=== PATIENT | female | born 1940 | race Caucasian/White ===

== ENCOUNTER → 2018-02-14 09:56 | Outpatient (CLI) | payer BC, SELFPAY ==
--- NOTE | 2018-02-14 10:00 | HPBI_ITS ---
MAMMOGRAPHY - BILATERAL SCREENING 3-D SAMEER SYNTHESIS REASON FOR EXAM: Female, 78 years old. Bilateral Screening 3-D tomosynthesis PERTINENT HISTORY: Family history breast carcinoma, aunt age 61. TECHNIQUE: 2-D mammograms and 3-D Sameer synthesis of the breast (s) were performed. CAD was performed. COMPARISON: 01/26/2017 through 01/06/2015. FINDINGS: The breast composition is almost entirely fat. Scattered benign calcifications are seen. No dense spiculated masses, abnormal microcalcification cluster, architectural distortion or dominant mass is identified. There is no adenopathy, skin thickening or nipple retraction. There has been no significant change since the prior study. HPBI/SCREENING MAMM (CAD), BILAT IMPRESSION: No mammographic signs of malignancy. Routine yearly mammograms recommended. ASSESSMENT CATEGORY: BIRADS Category 2: Benign. A letter regarding these results will be sent to the patient by the facility within 30 days. FOLLOW UP RECOMMENDATION: Yearly follow up mammogram recommended. (A) Approximately 10% of breast cancers are not detected by mammography. A normal mammogram should not delay biopsy of a clinically suspicious abnormality. Electronically Signed: Carl Mtz, at 19:57 EDT Tel , Service support ,
== END ==
PROVIDERS: Family Provider Family Medicine; PCP Family Medicine; Visit Provider Obstetrics & Gynecology
DX: Z12.31 Encounter for screening mammogram for malignant neoplasm of breast (principal)
CPT/HCPCS: 77063; 77067

== ENCOUNTER → 2019-03-07 15:24 | Outpatient (CLI) | payer BC, SELFPAY ==
[2016-03-21 22:39] VITALS: BMI 31.0
--- NOTE | 2019-03-07 15:30 | RAD_ITS ---
STUDY: X-RAY - LEFT HAND REASON FOR EXAM: Female, 79 years old. Arthritis. TECHNIQUE: 3 view(s) of the hand. COMPARISON: None. FINDINGS: There is joint space narrowing of the radiocarpal articulation consistent with degenerative arthrosis. Normal distal radioulnar joint. Normal visualized carpal bones. Normal carpal articulations There is degenerative arthrosis of the carpometacarpal (CMC) articulation of the thumb. Normal second through fifth carpometacarpal joints. Normal metacarpi. Normal metacarpophalangeal joint of the thumb. Normal interphalangeal joint of the thumb. Normal proximal and distal phalanges of the thumb. Normal metacarpophalangeal joints of the second through fifth fingers. There is diffuse articular joint space narrowing of the proximal and distal interphalangeal joints of the second through fifth fingers, but without erosive changes or periarticular soft tissue swelling. This is worse at the third proximal and distal interphalangeal joints with evidence of periarticular erosions. Soft tissue swelling. RAD/Hand Min 3 Views IMPRESSION: Degenerative joint disease of the hand and wrist, as described above. This is worse at the proximal and distal interphalangeal joints of the third digit with overlying soft tissue swelling. Electronically Signed: Matti Munoz, at 14:44 EDT , Service support ,
[2019-03-07 17:59] LABS: CRP < 2.90 mg/L (0.0-3.0); Rheumatoid Factor < 10.0 IU/mL (<15); Uric Acid 5.5 mg/dL (2.6-6.0)
[2019-03-07 18:01] LABS: Absolute Lymphocyte Count 1.37 X10^3/ul (0.83-4.51); Absolute Neutrophil Count 4.8 X10^3/uL (2.0-7.7); Basophil# 0.04 X10^3/uL; Basophil% 0.6 % (0-1); Eosinophil# 0.18 X10^3/uL; Eosinophils% 2.6 % (0-5); Hematocrit 42.5 % (37-47); Hemoglobin 13.9 g/dl (12.0-15.0); Lymphocyte # 1.37 X10^3/ul (4.0); Lymphocyte % 19.7 % (19-41); Mean Corp Hgb Conc 32.7 g/gl (32-36); Mean Corpuscular Hgb 30.3 pg (27.0-32.0); Mean Corpuscular Volume 92.8 fL (81-99); Mean Platelet Vol. 10.6 fl (6.2-12.0); Monocyte# 0.56 X10^3/uL; Neutrophil # 4.82 X10^3/uL (2.7-7.7); Neutrophil % 69.1 % (47-70); Platelet Count 263 K/mm3 (150-450); RBC Distribution Width CV 14.2 % (11.6-14.6); RBC Distribution Width SD 48.2 fl (35.1-43.9); Red Blood Count 4.58 M/mm3 (4.2-5.4)
[2019-03-07 18:03] LABS: Erythrocyte Sedimentation Rate 13 mm/hr (0-30)
[2019-03-07 18:04] LABS: POSITIVE COUNT NO; POSITIVE DIFFERENTIAL NO; POSITIVE MORPHOLOGY NO
[2019-03-12 12:08] LABS: ANTINUCLEAR ANTIBODIES DIRECT Negative (Negative)
== END ==
PROVIDERS: Family Provider Family Medicine; PCP Family Medicine; Referring Provider Family Medicine; Visit Provider Family Medicine
DX: M19.041 Primary osteoarthritis, right hand (principal); M19.042 Primary osteoarthritis, left hand
CPT/HCPCS: 36415; 73130; 84550; 85025; 85652; 86038; 86140; 86431

== ENCOUNTER → 2019-04-12 13:10 | Outpatient (CLI) | payer BC, SELFPAY ==
[2016-03-21 22:39] VITALS: BMI 31.0
--- NOTE | 2019-04-12 13:13 | BI_ITS ---
MAMMOGRAPHY - BILATERAL SCREENING REASON FOR EXAM: Female, 79 years old. Routine annual screening examination. PERTINENT HISTORY: Aunt with breast cancer. TECHNIQUE: Digital bilateral breast agnieszka (3D mammographic acquisition) in the CC and MLO projections. 2-D mediolateral oblique (MLO) and craniocaudad (CC) views of both breasts were obtained. CAD: Full Field Digital Mammography with Computer Added Detection was performed. COMPARISON: Comparison is made with prior study dated February 14, 2018 and January 26, 2017. FINDINGS: Breast Composition: There are scattered areas of fibroglandular density. There are no dominant masses or suspicious calcifications. Stable small nodular densities in the deep lateral portion of the left breast. No other significant abnormalities are identified. There has been no significant change since the prior study. BI/SCREENING MAMM (CAD), BILAT IMPRESSION: Stable bilateral screening mammogram. Yearly follow-up mammogram recommended. (A) ASSESSMENT CATEGORY: BIRADS Category 2: Benign. A letter regarding these results will be sent to the patient by the facility within 30 days. Approximately 10% of breast cancers are not detected by mammography. A normal mammogram should not delay biopsy of a clinically suspicious abnormality. [id number] Electronically Signed: Matti Munoz, at 14:56 EDT , Service support ,
== END ==
PROVIDERS: Family Provider Family Medicine; PCP Family Medicine; Referring Provider Obstetrics & Gynecology; Visit Provider Obstetrics & Gynecology
DX: Z12.31 Encounter for screening mammogram for malignant neoplasm of breast (principal); Z80.3 Family history of malignant neoplasm of breast
CPT/HCPCS: 77063; 77067

== ENCOUNTER → 2019-10-01 12:09 | Outpatient (CLI) | payer BC, SELFPAY ==
[2016-03-21 22:39] VITALS: BMI 31.0
[2019-10-01 14:36] LABS: Absolute Lymphocyte Count 1.26 X10^3/uL (0.83-4.51); Absolute Neutrophil Count 4.1 X10^3/uL (2.0-7.7); Basophil# 0.05 X10^3/uL; Basophil% 0.8 % (0-1); Eosinophil# 0.17 X10^3/uL; Eosinophils% 2.8 % (0-5); Hematocrit 43.9 % (37-47); Hemoglobin 13.6 g/dL (12.0-15.0); Lymphocyte # 1.26 X10^3/ul (4.0); Lymphocyte % 20.8 % (19-41); Mean Corpuscular Hgb 29.4 pg (27.0-32.0); Mean Corpuscular Volume 94.8 fL (81-99); Mean Platelet Vol. 10.6 fl (6.2-12.0); Monocyte# 0.46 X10^3/uL; Monocyte% 7.6 % (0-10); NRBC Flagged by Analyzer 0 % (0-5); Neutrophil % 67.7 % (47-70); Platelet Count 234 K/mm3 (150-450); RBC Distribution Width CV 13.8 % (11.6-14.6); RBC Distribution Width SD 48.1 fl (35.1-43.9); Red Blood Count 4.63 M/mm3 (4.2-5.4); White Blood Count 6.1 K/mm3 (4.4-11.0)
[2019-10-01 15:20] LABS: AST(SGOT) 14 U/L (15-37); Alanine Aminotransfer ALT/SGPT 19 U/L (13-56); Albumin, Serum 3.8 g/dL (3.2-5.0); Alkaline Phosphatase 100 U/L (45-117); Bilirubin, Direct 0.09 mg/dL (0.00-0.30); Globulin 3.9 g/dL (2.2-4.2); Protein, Total 7.7 g/dL (6.4-8.2); Thyroid Stim Hormone (TSH) 2.04 uIU/mL (0.358-3.74)
[2019-10-06 14:07] LABS: DHEA Sulfate 79.2 ug/dL (13.9-142.8)
[2019-10-08 13:43] LABS: Androstenedione 26 ng/dL (17-99)
== END ==
PROVIDERS: Family Provider Family Medicine; PCP Family Medicine; Referring Provider Family Medicine; Visit Provider Family Medicine
DX: L65.9 Nonscarring hair loss, unspecified (principal); L29.9 Pruritus, unspecified
CPT/HCPCS: 36415; 80076; 82157; 82627; 84403; 84443; 85025; 82626

== ENCOUNTER → 2019-11-05 16:31 | Outpatient (CLI) | payer BC, SELFPAY ==
[2019-11-05 17:30] LABS: Absolute Lymphocyte Count 1.61 X10^3/uL (0.83-4.51); Absolute Neutrophil Count 4.5 X10^3/uL (2.0-7.7); Basophil# 0.05 X10^3/uL; Basophil% 0.7 % (0-1); Eosinophils% 2.9 % (0-5); Hematocrit 41.7 % (37-47); Hemoglobin 13.4 g/dL (12.0-15.0); Lymphocyte # 1.61 X10^3/ul (4.0); Lymphocyte % 23.4 % (19-41); Mean Corp Hgb Conc 32.1 g/dL (32-36); Mean Corpuscular Volume 93.5 fL (81-99); Mean Platelet Vol. 10.6 fl (6.2-12.0); Monocyte# 0.51 X10^3/uL; Monocyte% 7.4 % (0-10); NRBC Flagged by Analyzer 0 % (0-5); Neutrophil # 4.49 X10^3/uL (2.7-7.7); Neutrophil % 65.3 % (47-70); Platelet Count 256 K/mm3 (150-450); RBC Distribution Width CV 13.7 % (11.6-14.6); RBC Distribution Width SD 46.5 fl (35.1-43.9); Red Blood Count 4.46 M/mm3 (4.2-5.4); White Blood Count 6.9 K/mm3 (4.4-11.0)
[2019-11-05 17:45] LABS: Erythrocyte Sedimentation Rate 26 mm/hr (0-30)
[2019-11-05 17:50] LABS: Ferritin 150 ng/mL (8-252); Rheumatoid Factor < 10.0 IU/mL (<15); T4 Free Direct 0.93 ng/dL (0.76-1.46); Thyroid Stim Hormone (TSH) 2.13 uIU/mL (0.358-3.74); Uric Acid 4.4 mg/dL (2.6-6.0)
[2019-11-07 11:51] LABS: Thyroid Peroxidase AB 11 IU/mL (0-34)
[2019-11-07 16:57] LABS: ANTINUCLEAR ANTIBODIES DIRECT Negative (Negative)
== END ==
PROVIDERS: Family Provider Family Medicine; PCP Family Medicine; Visit Provider Family Medicine
DX: M19.041 Primary osteoarthritis, right hand (principal); L65.9 Nonscarring hair loss, unspecified
CPT/HCPCS: 36415; 82728; 84439; 84443; 84550; 85025; 85652; 86038; 86376; 86431

== ENCOUNTER 2019-11-07 01:04 | Emergency (ER) | payer BC, SELFPAY ==
[2019-11-07 01:05] VITALS: BP 193/76; PULSE 90; RESP 17; TEMP 36.4; O2SAT 99; BMI 33.7
[2019-11-07 01:16] VITALS: BP 164/68; PULSE 70; RESP 16; O2SAT 100
[2019-11-07 02:08] VITALS: BP 141/55; PULSE 71; RESP 17; O2SAT 95
--- NOTE | 2019-11-07 03:45 | ED.VIS.GEN ---
History of Present Illness Chief Complaint: Overdose Detail of Chief Complaint: Accidental overdose of minoxidil Informant: Patient Onset: Today Narrative: Patient presents after accidental overdose of minoxidil. 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 She states the medication was mixed with water to dilute and placed in a plastic water bottle. She is supposed to take 1 teaspoon a day. She accidentally grabbed this bottle tonight thinking it was her regular water bottle and drank 3 swallows of it before she realized it was actually her medication. The bottle does not have a concentration of medication listed on it. Patient called poison control who estimates that she may have had 3 ounces or up to 18 teaspoons. Because we do not know the concentration of the minoxidil she was sent in to have her blood pressure monitored. Patient has no symptoms on arrival. - Past Medical History (1) Hair loss Status: Chronic Past Medical History - Allergies and Home Meds Allergies/Adverse Reactions: Allergies erythromycin base Allergy (Verified 11/07/19 01:13) Unknown Primary Care Physician: Rhina Castaneda MD [Primary Care Provider] - Lives: Alone Smoking Status: Never smoker Review of Systems General: Denies: Chills, Fever Eyes: Denies: Visual changes - bilaterally ENT: Denies: Bilateral ear pain Cardiovascular: Denies: Chest pain Respiratory: Denies: Dyspnea Gastrointestinal: Denies: Abdominal pain, Nausea, Vomiting Genitourinary: Denies: Dysuria Musculoskeletal: Denies: Myalgias, Arthralgias Skin: Denies: Rash Neurological: Denies: Headache Hematologic: Denies: Easy bruising, Easy bleeding Allergy: Denies: Uticaria Physical Exam Vital Signs/Narrative: Vital Signs Temp Pulse Resp BP Pulse Ox 11/07/19 02:08 71 17 141/55 H 95 11/07/19 01:16 70 16 164/68 H 100 11/07/19 01:05 97.6 F L 90 17 193/76 H 99 Inital Vital Signs reviewed: Yes General: Well nourished, Well developed Head: Normocephalic ENT: Moist mucous membranes Neck: Supple Cardiovascular: Regular rate, Regular rhythm Respiratory: No distress, CTA bilaterally Abdomen: Soft, Nontender, Nondistended Extremities: Nontender Skin: Normal color, No rash Neurological: Alert, Oriented x3, Normal Strength, Normal Sensation Psychological: - - Anxious Diagnostic/Tx/Re-eval - Medical Decision Making She was placed on bobbin presser. On review of the pharmacodynamics of minoxidil onset typically occurs about 30 minutes and peak concentration of the drug at 2 to 3 hours. Patient has been observed here to a point of 3 hours after her ingestion. Although her blood pressure was quite elevated when she came to the hospital, 193/76, she was very anxious. Her blood pressure has not dropped below the mid 120s after hours of observation. Patient has remained asymptomatic. At this time she will be discharged to home. ED Disposition - Plan for ED Patient: Disposition: Home or Assisted Living Diagnosis: Accidental overdose Instructions: OVERDOSE, Accidental (Adult) Referrals: Rhina Castaneda MD [Primary Care Provider] -
[2019-11-07 03:49] VITALS: BP 154/76; PULSE 81; RESP 20; O2SAT 97
== END 2019-11-07 04:24 | disposition home or self-care (01) ==
PROVIDERS: Emergency Provider Emergency Medicine; Family Provider Family Medicine; PCP Family Medicine
DX: T46.7X1A Poisoning by peripheral vasodilators, accidental (unintentional), initial encounter (principal); R03.0 Elevated blood-pressure reading, without diagnosis of hypertension; Y92.9 Unspecified place or not applicable
CPT/HCPCS: 99283

== ENCOUNTER 2021-02-05 13:14 | Outpatient (RCR) | payer BC, SELFPAY ==
[2021-02-05] MEDS: COVID-19 VACC, MRNA(PFIZER)/PF 30 MCG/0.3 ML SYRINGE IM (13:15)
[2021-02-26] MEDS: COVID-19 VACC, MRNA(PFIZER)/PF 30 MCG/0.3 ML SYRINGE IM (06:59)
== END 2021-04-28 23:59 ==
LOC: IMMUN 13:14
PROVIDERS: PCP Family Medicine; Referring Provider Family Medicine; Visit Provider Family Medicine
DX: Z23 Encounter for immunization (principal)
CPT/HCPCS: 0001A; 0002A; 91300

== ENCOUNTER → 2021-02-13 15:27 | Outpatient (CLI) | payer BC, SELFPAY ==
[2021-02-13 17:27] LABS: Absolute Lymphocyte Count 1.54 X10^3/uL (0.83-4.51); Absolute Neutrophil Count 5.2 X10^3/uL (2.0-7.7); Basophil# 0.04 X10^3/uL; Basophil% 0.5 % (0-1); Eosinophil# 0.12 X10^3/uL; Eosinophils% 1.6 % (0-5); Hematocrit 43.2 % (37-47); Hemoglobin 13.7 g/dL (12.0-15.0); Lymphocyte # 1.54 X10^3/ul (4.0); Lymphocyte % 20.4 % (19-41); Mean Corp Hgb Conc 31.7 g/dL (32-36); Mean Corpuscular Volume 94.7 fL (81-99); Mean Platelet Vol. 10.4 fl (6.2-12.0); Monocyte# 0.62 X10^3/uL; Monocyte% 8.2 % (0-10); NRBC Flagged by Analyzer 0 % (0-5); Platelet Count 269 K/mm3 (150-450); RBC Distribution Width CV 13.7 % (11.6-14.6); Red Blood Count 4.56 M/mm3 (4.2-5.4); White Blood Count 7.5 K/mm3 (4.4-11.0)
== END ==
PROVIDERS: PCP Family Medicine; Referring Provider Family Medicine; Visit Provider Family Medicine
DX: R68.83 Chills (without fever) (principal)
CPT/HCPCS: 36415; 85025

== ENCOUNTER 2021-02-24 06:30 | Day surgery (SDC) | payer BC, SELFPAY ==
[2021-02-19 08:56] VITALS: BMI 33.6
[2021-02-24] VITALS (7 sets, daily range): BP systolic 97–144; BP diastolic 47–76; PULSE 65–98; RESP 16; TEMP 36.1–36.3; O2SAT 97–99; BMI 34.0
[2021-02-24] MEDS: Lactated Ringers 1,000 ML 100 ML IV (07:05)
--- NOTE | 2021-02-24 07:09 | PCM.HP.BLA ---
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 Eber Painting MD) Glaucoma (Acute) Surgical History (Updated 02/19/21 @ 08:54 by Madison Stewart) S/P D&C (status post dilation and curettage) (Acute) Family History (Updated 02/19/21 @ 08:55 by Madison Stewart) Grandfather CVA (cerebral vascular accident) Grandmother CVA (cerebral vascular accident) Cancer stomach Mother Heart disease Brother Diabetes Heart disease Social History (Updated 02/19/21 @ 09:[address] Eber Painting MD) Smoking Status: Never smoker alcohol intake: never HPI HPI HPI: ASHLEY ADAMSON, is a 81 F who presents to the office today for HPI HPI Surgical H&P: Yes HPI: ASHLEY ADAMSON, is a 81 F who presents to the office today for rectal bleeding. The patient had a colonoscopy in 2010 for rectal bleeding and nothing was found except for a small hyperplastic polyp. Her rectal bleeding resolved and she had not had any rectal bleeding until recently. Patient reports over the last 3 months she has been having painless rectal bleeding with bowel movements. She describes bright red blood with wiping. She says that she is also had blood in the stool. ROS General General: No weight change or fatigue Musc Musculoskeletal: Yes arthritis Cardio Cardiovascular: No murmur, pacemaker, heart disease, atrial fibrillation, high blood pressure, heart attack, heart stent, palpitations, shortness of breat with exertion or chest pain Psych Psychiatric: No depression or anxiety Resp Respiratory: No shortness of breath, No sleep apnea, No cough, No COPD, No asthma, No emphysema, No wheezing Gastro Gastrointestinal: No abdominal pain, No nausea or vomiting, No diarrhea, No constipation, Yes blood in stool, No acid reflux, Yes hemorrhoids, No ulcers, No gallbladder problem, No black,tarry stools Valente Hematologic: No blood thinners Exam Const General: cooperative Orientation: alert, oriented x3 Resp Effort & Inspection: normal respiratory effort Auscultation: clear to auscultation bilaterally Cardio Rate: regular rate Rhythm: regular rhythm Heart Sounds: no murmurs GI Inspection: non-distended Palpation: soft, nontender Rectal Exam: visual inspection normal, normal sphincter tone Assessment & Plan Problems 1. Painless rectal bleeding K62.5 Plan The patient is having rectal bleeding with bowel movements for the last few months. She also reports blood in the stool but bright red blood when she wipes. I discussed colonoscopy with her. I was not able to note any hemorrhoids on rectal exam. If colonoscopy is normal and she does have hemorrhoids I will discuss hemorrhoidectomy with her. I explained endoscopy in detail to the patient. I explained the risks including but not limited to stroke or heart attack with anesthesia, perforation of the GI tract, bleeding, infection. I explained that any of these could necessitate further emergency surgery. The patient understands and all questions were answered sufficiently. The patient wishes to proceed with procedure. Eber Painting MD Pager: [facility] [address] [place] [address], [address] [place] [phone] Office: I have re-examined the patient. There are no clinical changes since date of exam.
--- NOTE | 2021-02-24 07:30 | COLBX_PTH ---
PATIENT: ASHLEY ADAMSON LOC: EN U#:[id number] AGE/SX: 81/F ROOM: RE02/24/[address]: Dr. Eber Painting MD : 1940 BED: DIS: 02/24/2021 SPEC #: [id number] RECD: 02/24/21 10:15 STATUS: DHARMESH RESandra #: [id number] ROGER: 02/24/21 07:[address]: Eber Painting DEPT: SURGICAL PATHOLOGY RECD BY: Hali Carvajal ENTERED: 02/24/21 12:57 SP TYPE: COLON BX OTHR DR: Dr. Rhina Castaneda MD Tissues: Rectum, NOS Procedures: Surgery Specimen Level IV HEADER OPERATION: Colonoscopy (MAC) PRE-OP DIAGNOSIS: Painless rectal bleeding TISSUE SUBMITTED: Rectal polyp MICROSCOPIC DIAGNOSIS Rectal polyp, biopsy: Fragments of tubulovillous adenoma. SJ:richmond 02/25/2021 MICROSCOPIC DESCRIPTION Slides are reviewed. GROSS DESCRIPTION Received in fixative is one container labeled with the patient's name and designated rectal polyp. The specimen consists of two de la rosa-pink polyps measuring 2.5 x 1.5 x 1 cm and 0.7 x 0.7 x 0.7 cm. Also present in the container is a piece of de la rosa-pink soft tissue measuring 0.7 x 0.5 x 0.2. Apparent base of the largest piece is inked black. This piece is serially sectioned. The intermediate sized piece is bisected. The entire specimen is submitted in two cassettes. Cassette 2 contains the largest piece. / SJ:rg 02/24/21 TC: 1 CPT: 88475
--- NOTE | 2021-02-24 08:01 | OP.COLON_ITS ---
Patient Name: Shira Murphy Procedure Date: 02/24/2021 7:06 AM Date of : 1940 Age: 81 Procedure: Colonoscopy Indications: Rectal bleeding Providers: Eber Painting MD Referring MD: Rhina Castaneda Medicines: Monitored Anesthesia Care Patient Profile: This is a 81 year old female. Refer to note in patient chart for documentation of history and physical. Last Colonoscopy: several years ago. Complications: No immediate complications. Procedure: Pre-Anesthesia Assessment: - Prior to the procedure, a History and Physical was performed, and patient medications and allergies were reviewed. The patient's tolerance of previous anesthesia was also reviewed. The risks and benefits of the procedure and the sedation options and risks were discussed with the patient. All questions were answered, and informed consent was obtained. Prior Anticoagulants: The patient has taken no previous anticoagulant or antiplatelet agents. After reviewing the risks and benefits, the patient was deemed in satisfactory condition to undergo the procedure. After I obtained informed consent, the scope was passed under direct vision. Throughout the procedure, the patient's blood pressure, pulse, and oxygen saturations were monitored continuously. The colonoscope was introduced through the anus and advanced to the cecum, identified by appendiceal orifice and ileocecal valve. The colonoscopy was performed without difficulty. The patient tolerated the procedure well. The quality of the bowel preparation was good. Scope In: 7:27:53 AM Scope Withdrawal Time 0 hours 13 minutes 1 second Scope Out: 7:48:11 AM Total Procedure Duration Time 0 hours 20 minutes 18 seconds Findings: A large polyp was found in the rectum. The polyp was semi-pedunculated. The polyp was removed with a hot snare. Resection and retrieval were complete. The exam was otherwise without abnormality on direct and retroflexion views. Impression: - One large polyp in the rectum, removed with a hot snare. Resected and retrieved. - The examination was otherwise normal on direct and retroflexion views. Recommendation: - Discharge patient to home. - Resume previous diet. - Continue present medications. - Await pathology results. - Repeat colonoscopy in 3 years for surveillance based on pathology results. Procedure Code(s): --- Professional --- 04430, Colonoscopy, flexible; with removal of tumor(s), polyp(s), or other lesion(s) by snare technique Diagnosis Code(s): --- Professional --- K62.1, Rectal polyp K62.5, Hemorrhage of anus and rectum CPT copyright 2017 [employer]. All rights reserved. The codes documented in this report are preliminary and upon crosscutter rolled glass review may be revised to meet current compliance requirements. Eber Painting MD 02/24/2021 8:00:55 AM This report has been signed electronically. Number of Addenda: 0 Note Initiated On: 02/24/2021 7:06 AM
--- NOTE | 2021-02-24 08:01 | OP.CCLET_ITS ---
02/24/2021 Rhina Castaneda [address] [place] [address] Re : Colonoscopy procedure for Shira Murphy Dear Dr. Castaneda This procedure was performed on Wednesday, February 24, 2021. My impressions and recommendations are as follows: Impressions : - One large polyp in the rectum, removed with a hot snare. Resected and retrieved. - The examination was otherwise normal on direct and retroflexion views. Recommendations : - Discharge patient to home. - Resume previous diet. - Continue present medications. - Await pathology results. - Repeat colonoscopy in 3 years for surveillance based on pathology results. My findings are described in the full procedure note, which is enclosed. If I can be of further assistance, please feel free to contact me at Doctor phone number(s): , Work: . Sincerely, Eber Painting MD 02/24/2021 8:00:55 AM This report has been signed electronically.
== END 2021-02-24 08:38 | disposition home or self-care (01) ==
LOC: EN 06:35 → AC 06:35
PROVIDERS: PCP Family Medicine; Referring Provider Family Medicine; Visit Provider Surgery
PROC: 0DJD8ZZ Inspection of Lower Intestinal Tract, Via Natural or Artificial Opening Endoscopic (ICD-10-PCS; CPT 45378; principal; 2021-02-24 07:25)
DX: D12.8 Benign neoplasm of rectum (principal); K62.5 Hemorrhage of anus and rectum; J45.909 Unspecified asthma, uncomplicated; G43.109 Migraine with aura, not intractable, without status migrainosus; Z20.822 Contact with and (suspected) exposure to COVID-19; Z79.899 Other long term (current) drug therapy
CPT/HCPCS: 45385; 87426; 88305; C9803; J7120; J2405

== ENCOUNTER → 2021-06-09 11:13 | Outpatient (CLI) | payer BC, SELFPAY ==
[2021-02-24 07:01] VITALS: BMI 34.0
--- NOTE | 2021-06-09 11:15 | BI_ITS ---
MAMMOGRAPHY - BILATERAL SCREENING REASON FOR EXAM: Female, 81 years old. Routine annual screening examination. PERTINENT HISTORY: Aunt with breast cancer. TECHNIQUE: Digital bilateral breast sameer (3D mammographic acquisition) in the CC and MLO projections. 2-D mediolateral oblique (MLO) and craniocaudad (CC) views of both breasts were obtained. CAD: Full Field Digital Mammography with Computer Added Detection was performed. COMPARISON: Comparison is made with prior study dated 04/12/2019 and 02/14/2018. FINDINGS: Breast Composition: There are scattered areas of fibroglandular density. There are no dominant masses or suspicious calcifications. The previously seen nodular densities in the deep mid slightly lateral aspect of the left breast have increased slightly in size. Correlation with ultrasound is recommended. Stable 4.7 mm nodular density in the inferior medial portion of the left breast. No other significant abnormalities are identified. BI/SCRN MAMM (CAD)W/SAMEER BILAT IMPRESSION: Mild increase in size of the previously seen adjacent densities in the deep slightly lateral portion of the left breast as described. Correlation with ultrasound is recommended. ASSESSMENT CATEGORY: BIRADS Category 0: Incomplete. Need additional imaging evaluation. A letter regarding these results will be sent to the patient by the facility within 30 days. Approximately 10% of breast cancers are not detected by mammography. A normal mammogram should not delay biopsy of a clinically suspicious abnormality. [id number] Electronically Signed: Matti Munoz MD at 12:38 EDT , Service support ,
== END ==
PROVIDERS: PCP Family Medicine; Referring Provider Student in an Organized Health Care Education/Training Program; Visit Provider Student in an Organized Health Care Education/Training Program
DX: Z12.31 Encounter for screening mammogram for malignant neoplasm of breast (principal); N63.20 Unspecified lump in the left breast, unspecified quadrant
CPT/HCPCS: 77063; 77067

== ENCOUNTER → 2021-06-10 10:43 | Outpatient (CLI) | payer BC, SELFPAY ==
[2021-02-24 07:01] VITALS: BMI 34.0
--- NOTE | 2021-06-10 10:45 | US_ITS ---
STUDY: ULTRASOUND BREAST - LEFT REASON FOR EXAM: Female, 81 years old. Abnormal screening mammogram. TECHNIQUE: Axial and longitudinal images of the LEFT breast were performed with a high resolution ultrasound transducer. # OF IMAGES: [id number] COMPARISON: Comparison is made with prior mammogram dated 06/09/2021. FINDINGS: LEFT Breast: There is a 5 mm x 6 mm x 2 mm hypoechoic well-defined nodule in the deep subcutaneous tissue of the breast. This may represent a sebaceous cyst. Clinical correlation is recommended. US/Breast Limited Unilateral IMPRESSION: Findings suggestive of a 5 mm x 6 mm x 3 mm hypoechoic nodule deep to the skin at the 4 o''clock position of the breast at 9 cm from nipple. This most likely represents a sebaceous cyst. ASSESSMENT CATEGORY: BIRADS Category 2: Benign. A letter regarding these results will be sent to the patient by the facility within 30 days. Electronically Signed: Matti Munoz MD at 12:22 EDT , Service support ,
== END ==
PROVIDERS: PCP Family Medicine; Referring Provider Student in an Organized Health Care Education/Training Program; Visit Provider Student in an Organized Health Care Education/Training Program
DX: R92.8 Other abnormal and inconclusive findings on diagnostic imaging of breast (principal)
CPT/HCPCS: 76642

== ENCOUNTER 2021-12-11 13:30 | Outpatient (RCR) | payer BC, SELFPAY ==
--- NOTE | 2021-11-26 15:32 | HP.PTEVAL ---
Patient's Visit Information ASHLEY ADAMSON is a 81 year old F referred to Physical Therapy by Dr. Rhina Castaneda MD with a diagnosis of Left Shoulder Pain. Date of Evaluation: 11/26/21 Physical Therapist: Madison Shaw DPT - Visit Plan Frequency: 2x /Week Duration: 4 Weeks Plan: Focus on scapular s/s- Ultrasound as modality of choice- Posture. HEP Given: Postural education, pec corner stretch, walk away, thumb up reaching, scap retractions - Subjective About 3.5 weeks ago she started having pain in the left shoulder. She is right hand dominate. Scooping leaves in two dust pans- moved her sofa out from the wall to hang a wreathe. She has pain going backwards- reaching to put a bra one, getting out of her car, putting her seat belt, pushing off with that hand. She hasn't put her [place] stuff away because she can't carry boxes. She throws her laundry down the stairs and puts the basket on the step above. The pain is located in the posterior deltoid. No N/t in the the fingers, no difficulty with finger dexterity. No x-rays or MRI. Saw the MD who moved it around. Eases: ice, Ibuprofen, resting it at your side. Describes the pain as dull and achy and just doesn't want to do it. No RHODES, blurred vision or dizziness. Sleep: disturbed but ibuprofen will let her sleep. Worst: 810 Best: -12/31. Fully I-lives alone- does have a dog who she has to package pick up but uses her right arm. Has had impingement in her left shoulder before- went to [facility]- she has therapy and that made her better- no issues since then. She is very active- was walking 2 miles most days but she does no weights. PMHx/Meds: change in eye drops since February 2021 - Objective Posture: FH, RS- increased guarding of the left UE- can correct posture with verbal cues but does not maintain. Gait: no deviation noted- good arm swing and trunk rotation. 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 - Special Tests L Shoulder Supine Impingement Test - RC Tear: Positive L Shoulder Lift Off Test - Subscapular Tear: Positive L Shoulder Empty Can - SS: Positive L Shoulder Neer - Impingement: Positive L Shoulder Ramos Cosmo - Impingement: Positive - Balance/Special Test Scores Quick DASH Score: 38.6350 - Goals Goal 1:: Patient will be I with HEP and progression Goal Time Frame: 4-6 Weeks Goal 2:: Patient will maintain proper posture t/o tx session Goal Time Frame: 4-6 Weeks Goal 3:: Patient will report no pain for 1 week performing normal ADL's Goal Time Frame: 4-6 Weeks Goal 4:: Patient will report more than 75% better Goal Time Frame: 4-6 Weeks Goal 5:: Patient will demo full AROM of the left shoulder in all deficit planes Goal Time Frame: 4-6 Weeks - Rehabilitation Potential Physical Therapy Diagnosis: Patient presents with hypomobility- she has decrease pain free ROM, UE and scapular strength/stabilization and muscular endurance leading to poor posture and increased pain with ADL's. Rehabilitation Potential: Good - Anticipated Interventions Patient/Client Instruction: Educate patient on: Benefits of Fitness Program Therapeutic Exercise to Include: Strength training, Endurance training, Coordination, Body mechanics, Postural training, Flexibilty training, Neuromotor development, Passive ROM, Active ROM, Dynamic Lumbar Stabilization, Scapular Strength/Stabilization For the Purpose of:: To improve muscle performance and motor function TENS: Yes Cryotherapy (ice pack, ice massage): Yes Thermo therapy (hot pack): Yes Ultrasound (thermal/non thermal): Yes Thank you for the opportunity to evaluate your patient. For Medicare and Medicare HMO plans, please review the plan of care and approve it. It will need to be FAXED BACK to us at [phone] for Medicare purposes. For Medicare only, by signing this I certify the plan of care. Please let me know if there are questions or concerns regarding this plan of care. Physician Signature: Date:
--- NOTE | 2022-05-06 14:44 | HP.PT.NRP ---
ASHLEY ADAMSON was seen in my office for initial evaluation on 11/26/21. The following Plan of Care was established for this patient: Initial Frequency: 2x /Week Initial Duration: 4 Weeks Patient/Client Instruction: Educate patient on: Benefits of Fitness Program Therapeutic Exercise to Include: Strength training, Endurance training, Coordination, Body mechanics, Postural training, Flexibilty training, Neuromotor development, Passive ROM, Active ROM, Dynamic Lumbar Stabilization, Scapular Strength/Stabilization For the Purpose of:: To improve muscle performance and motor function TENS: Yes Cryotherapy (ice pack, ice massage): Yes Thermo therapy (hot pack): Yes Ultrasound (thermal/non thermal): Yes This patient was last seen in our office . Pertinent comments regarding their Physical therapy will appear below: Patient has not attended PT in over 30 days- appropriate to be d/c and return to MD for further evaluation as needed. At this point I will be discontinuing this patient from physical therapy. I would be happy to see this patient again in the future if found appropriate by the physician. Thank you! Madison Shaw DPT Balance/Gait/Functional tests - Balance/Special Test Scores Quick DASH Score: [phone]
== END 2021-12-11 19:00 | disposition home or self-care (01) ==
LOC: PT 13:30
PROVIDERS: PCP Family Medicine; Referring Provider Family Medicine; Visit Provider Family Medicine
DX: S46.002D Unspecified injury of muscle(s) and tendon(s) of the rotator cuff of left shoulder, subsequent encounter (principal); X58.XXXD Exposure to other specified factors, subsequent encounter
CPT/HCPCS: 97035; 97110; 97140; 97162

== ENCOUNTER 2023-01-28 12:34 | Emergency (ER) | payer BC, SELFPAY ==
[2023-01-28 12:35] VITALS: BP 169/76; PULSE 74; RESP 19; TEMP 36.4; O2SAT 100; BMI 33.3
[2023-01-28 13:23] LABS: Absolute Lymphocyte Count 1.69 X10^3/uL (0.83-4.51); Absolute Neutrophil Count 3.8 X10^3/uL (2.0-7.7); Basophil# 0.04 X10^3/uL; Basophil% 0.6 % (0-1); Eosinophil# 0.16 X10^3/uL; Eosinophils% 2.6 % (0-5); Hematocrit 46.3 % (37-47); Lymphocyte # 1.69 X10^3/ul (0.83-4.51); Lymphocyte % 27.2 % (19-41); Mean Corp Hgb Conc 32.4 g/dL (32-36); Mean Corpuscular Hgb 30.4 pg (27.0-32.0); Mean Corpuscular Volume 93.9 fL (81-99); Mean Platelet Vol. 10.4 fl (6.2-12.0); Monocyte# 0.53 X10^3/uL; Monocyte% 8.5 % (0-10); NRBC Flagged by Analyzer 0 % (0-5); Neutrophil # 3.76 X10^3/uL (2.7-7.7); Neutrophil % 60.6 % (47-70); Platelet Count 243 K/mm3 (150-450); RBC Distribution Width CV 13.9 % (11.6-14.6); RBC Distribution Width SD 48.3 fl (35.1-43.9); Red Blood Count 4.93 M/mm3 (4.2-5.4); White Blood Count 6.2 K/mm3 (4.4-11.0)
[2023-01-28 13:36] LABS: Anion Gap 7 (5-15); BUN 18 mg/dL (7-18); BUN/Creat Ratio 24.5 RATIO (10-20); Calcium,Total 9.3 mg/dL (8.5-10.1); Chloride 106 mmol/L (98-107); Creatinine, Serum 0.73 mg/dL (0.55-1.02); EST Glomerular Filtration Rate 81 mL/min (>60); Est Glom Filt Rate - Afr Amer 98 mL/min (>60); Glucose 124 mg/dL (74-106); Potassium 4.1 mmol/L (3.5-5.1); Sodium Level 140 mmol/L (136-145)
[2023-01-28] MEDS: Ondansetron 4 MG/2 ML Vial IV (13:37)
[2023-01-28 14:24] VITALS: BP 167/78; PULSE 71; RESP 16; O2SAT 98
--- NOTE | 2023-01-28 14:39 | EX.ED.DYSGE1 ---
HPI History of Present Illness Chief Complaint: Dizziness Informant: patient Narrative Narrative: Patient sent in from dentist office concerns for sudden onset of near syncope sweaty with vomiting after getting her lidocaine injection with epinephrine. No lip or tongue swelling. She states shortly after her injection she felt the symptoms this has not happened in the past. Was reported by patient dentist told her different form of epinephrine. She states it was not significant discomfort during the injection she had topical numbing medicines at that time also. Currently symptoms are resolving. Only slight nausea. Denies chest pains or shortness of breath. Reports this was an elective procedure due to loosening of her crown. There is no pain in her teeth. Prior similar symptoms: No PFSH PFSH Medical History Glaucoma Home Medications brimonidine 0.15 % eye drops 1 drp EACH EYE BID 03/21/16 [History Last Taken 11/06/19] albuterol sulfate 90 mcg/actuation aerosol inhaler (Ventolin HFA) 2 puff inhalation Q6H PRN Sob &/Or Wheezing 02/19/21 [History Last Taken Unknown] fexofenadine 180 mg tablet (Shima Allergy) 180 mg PO DAILY PRN Allergies 02/19/21 [History Last Taken Unknown] brinzolamide 1 % eye drops,suspension 1 drp OP BID 02/20/21 [History Last Taken Unknown] ondansetron 4 mg disintegrating tablet 4 mg PO Q8H PRN PRN Nausea #10 tabs 01/28/23 [Rx Last Taken Unknown] Allergy/AdvReac Type Severity Reaction Status Date / Time lansoprazole [From Prevacid] Allergy Mild PT UNSURE Verified 06/14/22 14:30 OF REACTION erythromycin base Allergy Unknown Verified 06/14/22 14:30 Family History Grandfather CVA (cerebral vascular accident) Grandmother CVA (cerebral vascular accident) Cancer stomach Mother Heart disease Brother Diabetes Heart disease Surgical History Hx of colonoscopy Hx of tonsillectomy S/P D&C (status post dilation and curettage) Social History Smoking Status: Never smoker alcohol intake: never ROS ROS ED Constitutional Constitutional ED: Denies chills, fever(s) or sweats Eyes Eyes: Denies change in vision ENT ENT ED: Denies dysphagia or sore throat Cardiovascular Cardiovascular: Denies chest pain, leg edema, palpitations or racing heartbeat Respiratory/Chest Respiratory/Chest: Denies cough, dyspnea or dyspnea on exertion Gastrointestinal Gastrointestinal: Reports nausea; Denies abdominal pain, diarrhea or vomiting Genitourinary Genitourinary ED: Denies dysuria, hematuria or urinary frequency Musculoskeletal Musculoskeletal: Denies back pain, extremity pain or neck pain Integumentary Denies rash or wounds Neurologic Neurologic: Denies headache(s), paresthesias or weakness EXAM Physical Exam Const Vital Signs: 01/28/23 12:35 01/28/23 12:39 01/28/23 14:24 Temperature 97.5 F L Temperature Source Oral Pulse Rate 74 71 Respiratory Rate 19 H 16 Respiratory Effort Normal Non-Labored Respiratory Pattern Normal Blood Pressure 169/76 H 167/78 H Blood Pressure Mean 107 107 Pulse Ox 100 98 Oxygen Delivery Method Room Air Room Air Positive well nourished and well developed General Appearance ED: well developed and NAD HEENT Reports moist mucous membranes HEENT Narrative: No lip or tongue swelling airway patent. There is dental fillings noted in the right lower molars. normocephalic and atraumatic Eyes PERRL, EOMs intact bilaterally and conjunctivae normal General Eye ED: Yes normal appearance of both eyes Neck no lymphadenopathy and supple General: Negative for tenderness Chest Wall Chest: Negative for tenderness Resp normal respiratory effort and normal air movement Effort and Inspection: symmetric chest movement; Negative for respiratory distress Cardio regular rate, regular rhythm and no murmurs Peripheral Pulses: pulses 2+ throughout GI normal to inspection, nondistended, normoactive bowel sounds and non-tender Palpation: Negative for guarding or rebound tenderness present Back/Spine no CVA tenderness and no thoracic nor lumbar tenderness Extremity normal to inspection General Extremety ED: Negative for edema or tenderness General Extremity: Negative for edema Neuro oriented x3, CN's II-XII intact bilaterally and no sensory deficits noted Sensorium / Orientation: awake and alert Skin no rashes or lesions noted and no wounds MDM MDM MDM Narrative Medical decision making narrative: Interventions / MDM: Differential diagnosis: Vasovagal near syncope, nausea and vomiting Diagnosis considered but do not suspect: N/A My EKG interpretation: Sinus rate of 64, no ST or T wave changes QTc 437 Imaging independently reviewed and interpreted by myself: N/A External documents reviewed: N/A Test considered but not ordered:N/A ED course: Patient no focal neurological deficits. No indication for CT imagings. EKG shows no dysrhythmia. Labs obtained normal she given fluids and Zofran reevaluation improved she is tolerating oral fluids Re-evaluation: stable, ambulated with no return of symptoms. Discussed likely vasovagal effect from the injection. Outpatient follow-up. Return precautions. All questions were answered. Disposition discussed with patient/family/significant other: Patient Case discussed with consulting clinician: N/A Lab Data Labs: Laboratory Results - last 24 hr 01/28/23 01/28/23 12:51 12:51 WBC 6.2 RBC 4.93 Hgb 15.0 Hct 46.3 MCV 93.9 MCH 30.4 MCHC 32.4 RDW Std Deviation 48.3 H RDW Coeff of Leobardo 13.9 Plt Count 243 MPV 10.4 Immature Gran % (Auto) 0.500 Neut % (Auto) 60.6 Lymph % (Auto) 27.2 [place] % (Auto) 8.5 Eos % (Auto) 2.6 Baso % (Auto) 0.6 Absolute Neuts (auto) 3.8 Absolute Lymphs (auto) 1.69 Nucleated RBC % 0 Sodium 140 Potassium 4.1 Chloride 106 Carbon Dioxide 27.0 Anion Gap 7 BUN 18 Creatinine 0.73 Estim Creat Clear Calc 36.50 Est GFR (MDRD) Af Amer 98 Est GFR (MDRD) Non-Af 81 BUN/Creatinine Ratio 24.5 H Glucose 124 H Calcium 9.3 Discharge Plan Triage Chief Complaint: Dizziness Other Complaint: Syncope ED Provider: Greg Macias Dx/Rx/DC Orders Clinical Impression: Vasovagal near syncope, Nausea & vomiting Instructions: ED Near-Fainting- Vagal Reaction, ED Vomiting (Adult) Prescriptions: New ondansetron [ondansetron] 4 mg tablet,disintegrating 4 mg PO Q8H PRN PRN (Reason: Nausea) Qty: 10 0RF No Action albuterol sulfate [Ventolin HFA] 90 mcg/actuation HFA aerosol inhaler 2 puff INHALATION Q6H PRN (Reason: Sob &/Or Wheezing) fexofenadine [Shima Allergy] 180 mg tablet 180 mg PO DAILY PRN (Reason: Allergies) brimonidine 1 DROP bottle 1 drp EACH EYE BID brinzolamide 15 ML drops,suspension 1 drp OP BID Primary Care Provider: Rhina Castaneda Referrals: Rhina Castaneda MD [Primary Care Provider] - 1 Week Activity Restrictions/Additional Instructions: EKG normal labs are stable. Cardiac disease. Follow-up with your doctor. Return if any worsening symptoms. Disposition Disposition: Home, Self Care Discharge Date/Time: 01/28/23 15:00
--- NOTE | 2023-01-28 14:40 | NURSING ---
PT UP TO AMB TO BR. UP WITH NO ASSIST AND DID WELL. ABLE TO TURN AND DO FOR SELL AND ADJUST ALL CLOTHING ONCE IN BATHROOM AND BEND WITH NO C/O DIZZINESS WITH POSITIONING CHANGES. BACK TO ROOM AND WAITING ON DC.
== END 2023-01-28 15:00 | disposition home or self-care (01) ==
PROVIDERS: Emergency Provider Emergency Medicine; PCP Family Medicine; Visit Provider Emergency Medicine
DX: R55 Syncope and collapse (principal); R11.2 Nausea with vomiting, unspecified
CPT/HCPCS: 80048; 85025; 93005; 96374; 99285; J7030; A4216; J2405

== ENCOUNTER → 2024-01-27 | Outpatient (CLI) | payer BC, SELFPAY ==
--- OUTSIDE RECORDS SUMMARY | 2024-01-27 11:48 | XMS RPT_ITS | CCD ---
Author Name Unknown Address [address] [place] [address] Organization [facility] Care Team Providers Care Spray Painter Name Role Phone Rhina Castaneda Maurice Primary Care Provider SELAM CARNEY Attending Unavailable KARINA WALKER Referring Unavailable JOLLIFF, RHINA MAURICE Primary Care Unavailable JOLLIFF, RHINA MAURICE Primary Care Unavailable JOLLIFF, RHINA MAURICE Primary Care Unavailable KARINA WALKER Referring Unavailable JOLLIFF, RHINA MAURICE Primary Care Unavailable JOEDENIFF, RHINA MAURICE Primary Care Unavailable SELAM CARNEY Referring Unavailable Allergies Allergy Classification Reported Allergen(s) Allergy Type Date of Onset Reaction(s) Facility (3 sources) Erythromycin; Translations: [ERYTHROMYCIN] Drug Allergy 10-17-2012 GI Upset [facility] Medications Completed/Discontinued Medications Medication Drug Class(es) Dates Sig (Normalized) Sig (Original) Albuterol (2 sources) beta2-Adrenergic Agonist ALBUTER OL SULFATE (VENTOLIN INHALATION) Inhale as instructed. 0 Active Problems Active Problems Problem Classification Problem Date Documented Da te Episodic/Chronic Immunizations and screening for infectious disease (1 source) Suspected disease caused by 2019-nCoV; Translations: [Suspected COVID-19 virus infection] Episodic Past or Other Problems Problem Classification Problem Date Documented Da te Episodic/Chronic Fracture of lower limb (1 source) Nondisplaced fracture of navicular [scaphoid] of right foot, initial encounter for closed fracture; Translations: [Closed nondisplaced fracture of navicular bone of right foot, initial encounter] Onset: 2 Episodic Gastrointestinal hemorrhage (2 sources) Gastrointestinal hemorrhage; Translations: [Gastrointestinal hemorrhage, unspecified] Onset: 2 10-23-2012 Episodic Hemorrhoids (2 sources) Internal hemorrhoids; Translations: [Other hemorrhoids] Onset: 2 10-23-2012 Episodic Other connective tissue disease (1 source) Pain in right foot; Translations: [Foot pain, right] Onset: 2 Episodic Other injuries and conditions due to external causes (1 source) Unspecified injury of right foot, initial encounter; Translations: [Injury of right foot, initial encounter] Onset: 2 Episodic Sprains and strains (1 source) Unspecified sprain of right foot, initial encounter; Translations: [Sprain of right foot, initial encounter] Onset: 2 Episodic Results Test Name Value Interpretation Reference Range Facil ity Vital Signs Date Time Vital Sign Value Performing Clinician Facility 09-12-2022 11:22-0400 Body temperature 100.99 [degF] Bg Allison APRN.EMMANUEL Work Phone: [facility] 09-12-2022 11:22-0400 Body weight 81.65 kg Bg Allison APRN.EMMANUEL Work Phone: [facility] 09-12-2022 11:22-0400 Diastolic blood pressure 92 mm[Hg] Bg Allison APRN.WOODWORK SALVAGE INSPECTOR Work Phone: [facility] 09-12-2022 11:22-0400 Heart rate 92 /min Bg Allison APRN.WOODWORK SALVAGE INSPECTOR Work Phone: [facility] 09-12-2022 11:22-0400 Respiratory rate 18 /min Bg lAlison APRN.WOODWORK SALVAGE INSPECTOR Work Phone: [facility] 09-12-2022 11:22-0400 SaO2% (BldA) [Mass fraction] 98 % Bg Allison APRN.WOODWORK SALVAGE INSPECTOR Work Phone: [facility] 09-12-2022 11:22-0400 Systolic blood pressure 142 mm[Hg] Bg Allison APRN.WOODWORK SALVAGE INSPECTOR Work Phone: [facility] Encounters Encounter Date Encounter Type Care Provider Facility Start: 09-13-2022 Telephone encounter Servando elias APRN.EMMANUEL Work Phone: [facility] Plan of Treatment Date Care Activity Detail Author Start: 09-12-2022 End: 09-26-2022 Influenza virus A and B RNA and SARS-CoV-2 (COVID-19) N gene panel - Respiratory specimen by HENRIK with probe detection COVID WITH FLUA+B, ROUTINE Microbiology Routine Suspected COVID-19 virus infection Expected: 09/12/2022, Expires: 09/26/2022 [facility] Work Phone: Payers Date Payer Category Payer Medicare MEDICARE MEDICAR E A [id number] 2006-Present [phone] [address] [place] [address] Medicare [id number] 1997 Unknown MARY COLLIER BS FEP PPO [id number] 1997-Present [phone] [address] [place] [address] PPO [id number] 1997 Unknown [id number] Social History Date Type Detail Facility Start: 09-12-2022 Tobacco smoking stat [facility] Never smoked tobacco [facility] Start: 09-12-2022 Tobacco use and exposure Smoke less tobacco non-user [facility] Start: 09-12-2022 Alcohol intake Lifetime non-d landon (finding) [facility] Start: 12-23-2021 History SDOH Alcohol Frequency 1 [facility] Start: 1940 Sex Assigned At Not on file [facility] Note 09-13-2022 Telephone Encounter - Maria Elena Ernst RN - 09/13/2022 10:13 AM EDTTelephone Encounter - Karmen Ayala - 09/13/2022 9:58 AM EDTTelephone Encounter - Servando Gonzalez APRN.CNP - 09/13/2022 9:04 AM EDT Note Date & Type Note Facility 09-13-2022 Miscellaneous Notes Formattin g of this note might be different from the original. Pt called and is notified of providers results and instructions. Pt voices understanding. Pt already called PCP. Maria Elena Ernst RN Left message for patient to return call. Karmen Ayala You tested positive for COVID-19 Follow the CDC guidelines for isolation: 1. Everyone, regardless of vaccination status, should stay home for 5 days. 2. If you have no symptoms or your symptoms are resolving after 5 days, you can leave your house. 3. Continue to wear a mask around others for 5 additional days. If you have a fever, continue to stay home until your fever resolves, even if it is longer than 5 days. Please monitor your symptoms, and for any worrisome symptoms, call your primary care provider or schedule a visit with [facility]. A test is not recommended to return to work/school when meeting the above criteria. Can f/u with pcp if desires tx with covid medications documented in this encounter [facility] Influenza virus A and B RNA and SARS-CoV-2 (COVID-19) N gene panel HENRIK+probe (Resp) 09-12-2022 Note Date & Type Note Facility 09-12-2022 Influenza virus A and B RNA and SARS-CoV-2 (COVID-19) N gene panel HENRIK+probe (Resp) COVID 19 RESULT: SARS-CoV-2 (Agent of COVID-19) Detected by RT-PCR or equivalent method. etienne [id number] [employer] (TORRES)_EUA This test was developed and its performance characteristics determined by [facility] [place]. This test has been authorized by FDA under an Emergency Use Authorization (EUA). This test has been validated in accordance with the FDA's Guidance Document Policy for Diagnostics Testing in Laboratories Certified to Perform High Complexity Testing under CLIA prior to Emergency use Authorization for Coronavirus Disease 2019 during the Public Health Emergency issued on January 19, 2020. Test performed by [facility], [facility] [place], [address] [place] [address] [place] [id number]. INFLUENZA A PCR: Negative for Influenza A by RT-PCR INFLUENZA B PCR: Negative for Influenza B by RT-PCR [facility] Progress note 09-12-2022 Note Date & Type Note Facility 09-12-2022 Note HNO ID: [id number] Author: Bg Allison APRN.WOODWORK SALVAGE INSPECTOR Service: ? Author Type: Nurse Practitioner Type: Progress Notes Filed: 09/12/2022 11:47 AM Note Text: Subjective HPI Nontoxic-appearing female presents urgent care [facility] symptoms. Duration of symptoms 1 day. Associated symptoms cough runny nose fever chills slight body aches. States yesterday she did have some loose stools that have since subsided. No known sick contacts. Did use NyQuil last night. No OTC medications today. Denies any significant pain. States overall she is feels crummy . Denies any productive cough chest pain shortness of breath pleuritic pain hemoptysis nausea vomiting abdominal pain or rashes. Denies history of COVID-19 infection. She is vaccinated. Did not receive the boosters. Past medical history prescription medication use allergies reviewed. .Patient presents with: Fever: Chills, runny nose, cough, ST x1 day PAST MEDICAL HISTORY Diagnosis Date Asthma seasonal Glaucoma Hemorrhage of gastrointestinal tract, unspecified Internal hemorrhoids without mention of complication PAST SURGICAL HISTORY Procedure Laterality Date COLONOSCOPY FLX DX W/COLLJ SPEC WHEN PFRMD 10/23/2012 Colonoscopy repeat 10 years DANDC, DIAG AND/OR THERAPEUTIC SKIN BX, 1 LESION for rash TONSILLECTOMY AND ADENOIDECTOMY age 27 ALLERGIES Erythromycin MEDICATIONS brinzolamide (AZOPT) 1 % ophthalmic suspension Brinzolamide (Azopt) 15 ML drops,suspension Active 1 DRP OP TWICE A DAY February 20, 2021 8:36am ALBUTEROL SULFATE (VENTOLIN INHALATION) Inhale as instructed. brimonidine (ALPHAGAN P) 0.1 % drop Use 1 Drop in both eyes three times daily. FAMILY HISTORY Problem Relation Age of Onset Arthritis Mother will be 90 01/31 Heart Mother Hypertension Mother Heart Father Alzheimer's Disease Father Heart Brother GI Sister diverticulitis Social History Tobacco Use Smoking status: Never Smokeless tobacco: Never Vaping Use Vaping Use: Never used Substance Use Topics Alcohol use: Never BP 142/92 Pulse 92 Temp (!) 38.3 ?C (101 ?F) Resp 18 Wt 81.6 kg (180 lb) SpO2 98% Review of Systems Constitutional: Positive for chills, fever and malaise/fatigue. HENT: Positive for congestion and sore throat. Negative for ear discharge, ear pain and sinus pain. Eyes: Negative for blurred vision, pain, discharge and redness. Respiratory: Positive for cough. Negative for hemoptysis, sputum production, shortness of breath, wheezing and stridor. Cardiovascular: Negative for chest pain. Gastrointestinal: Positive for diarrhea. Negative for abdominal pain, nausea and vomiting. Musculoskeletal: Positive for myalgias. Skin: Negative for itching and rash. Neurological: Positive for headaches. Negative for dizziness. Objective Physical Exam Constitutional: General: She is not in acute distress. Appearance: She is not diaphoretic. HENT: Head: Normocephalic. Nose: Congestion present. Mouth/Throat: Mouth: Mucous membranes are moist. Pharynx: Oropharynx is clear. No oropharyngeal exudate or posterior oropharyngeal erythema. Eyes: Conjunctiva/sclera: Conjunctivae normal. Pupils: Pupils are equal, round, and reactive to light. Cardiovascular: Rate and Rhythm: Normal rate and regular rhythm. Heart sounds: Normal heart sounds. Pulmonary: Effort: Pulmonary effort is normal. No tachypnea, accessory muscle usage or respiratory distress. Breath sounds: Normal breath sounds. No stridor. No wheezing, rhonchi or rales. Abdominal: Palpations: Abdomen is soft. Tenderness: There is no abdominal tenderness. There is no guarding or rebound. Musculoskeletal: Cervical back: Normal range of motion and neck supple. No rigidity or tenderness. Lymphadenopathy: Cervical: No cervical adenopathy. Skin: General: Skin is warm and dry. Neurological: Mental Status: She is alert and oriented to person, place, and time. ASSESSMENT/PLAN: 1. Suspected COVID-19 virus infection - ICD9: V01.79, ICD10: Z20.822 - COVID WITH FLUA+B, ROUTINE Patient diagnosed with suspected COVID-19. Supportive therapies discussed. Is interested in antiviral therapy if positive for COVID-19. Red flags for prompt reevaluation discussed. Patient was educated on supportive therapies. Patient will follow up with primary care provider as needed. Patient was instructed to immediately proceed to emergency room for any new, worsening, or symptoms lasting longer than anticipated. The patient's clinical presentation is otherwise unremarkable at this time. Based on exam and clinical finding, the patient is stable for discharge. Plan of care was discussed with patient. Patient verbalizes understanding and agrees to plan of care. This note was generated using [employer] software. It may contain errors in wording, punctuation, or spelling. Bg Allison APRN.EMMANUEL [facility] Instructions 09-12-2022 Patient Instructions Note Date & Type Note Facility 09-12-2022 Instructions Bg Allison APRN.EMMANUEL - 09/12/2022 11:33 AM EDT How to Manage Common Symptoms Associated with COVID for Adults Fever- Fever is a temperature over 100.4 F and can occur when the body is fighting an infection. To help treat a fever: Drink plenty of fluids and stay well hydrated. Eat small amounts of easy to digest food. Rest. Your body needs rest to recover, but getting up and moving around the house frequently is a good idea. You should try to continue doing your normal daily activities (bathing, toileting, grooming, cooking), though you will probably feel tired, and need to rest often. Avoid any heavy activity or exercise, as this will increase your body temperature. Dress in light clothing and stay covered in a light sheet. Keep the room temperature cool. Take a slightly warm (not cold or cool) bath, or apply damp washcloths to the forehead and wrists. Cough- Cough is a common symptom associated with COVID and can be bothersome. To help treat a cough: Stay well hydrated. Try warm water or tea with lemon and/or honey to help soothe the cough. Use a humidifier to add moisture to the air. Try a product with menthol, like a cough drop or a rub for your chest such as Vicks, which can help reduce cough. Try cough drops. Avoid smoking and other strong odors or perfumes. Try breathing exercises to keep your lungs open and clear. Take a big deep breath through your nose and hold for 5 seconds before slowly releasing. Repeat frequently, while you are awake. Congestion- Runny nose or nasal congestion can occur with COVID. Treatment can help relieve symptoms: Try OTC nasal saline spray, or nasal saline rinse to relieve mucus congestion. Nasal strips can help keep nasal passages open, to increase airflow. Elevating your head with an extra pillow in bed can help reduce congestion. Using a humidifier can increase moisture in the air, and make breathing easier. Sore Throat- Another common symptom with COVID, can be managed at home by: Stay well hydrated. Gargle with salt water - mix teaspoon salt with 1 cup of warm water and gargle. This helps to loosen mucus in the back of the throat and may reduce discomfort. Try ice chips, popsicles or lozenges to soothe the throat. Nausea/Vomiting/Diarrhea- These are common symptoms, and staying hydrated is most important. If you are nauseous or vomiting, start with small sips of water every 10-15 minutes and increase as tolerated. You can try sucking an ice cube too. If tolerating, you can try pedialyte or Gatorade, or flat sprite or gato-sly. Start slowly and increase as you are able to. Instead of meals, try smaller, more frequent snacks. Try eating bland foods like crackers, toast, rice, and applesauce. Avoid spicy, greasy or fried foods and dairy containing foods. Even if you aren't feeling hungry due to lack of smell or taste, it is important to try to take in some food when you are able. After drinking and eating, rest in an upright position for up to two hours as needed to help decrease nauseous feelings. Try closing your eyes, avoid moving and watching TV. Avoid strong odors that can make you feel more nauseated. When to seek emergency medical attention Look for emergency warning signs for COVID-19. If having any of these symptoms, seek emergency medical care immediately: Trouble breathing Persistent pain or pressure in the chest New confusion Inability to wake or stay awake Bluish lips or face *This list is not all possible symptoms. Please call your medical provider for any other symptoms that are severe or concerning to you. documented in this encounter [facility] History of Present illness Narrative 09-12-2022 Bg Allison APRN.CNP - 09/12/2022 11:25 AM EDT Note Date & Type Note Facility 09-12-2022 History of Presen t illness Narrative Subjective HPI Nontoxic-appearing female presents urgent care chief [facility] symptoms. Duration of symptoms 1 day. Associated symptoms cough runny nose fever chills slight body aches. States yesterday she did have some loose stools that have since subsided. No known sick contacts. Did use NyQuil last night. No OTC medications today. Denies any significant pain. States overall she is feels crummy . Denies any productive cough chest pain shortness of breath pleuritic pain hemoptysis nausea vomiting abdominal pain or rashes. Denies history of COVID-19 infection. She is vaccinated. Did not receive the boosters. Past medical history prescription medication use allergies reviewed. .Patient presents with: Fever: Chills, runny nose, cough, ST x1 day PAST MEDICAL HISTORY Diagnosis Date Asthma seasonal Glaucoma Hemorrhage of gastrointestinal tract, unspecified Internal hemorrhoids without mention of complication PAST SURGICAL HISTORY Procedure Laterality Date COLONOSCOPY FLX DX W/COLLJ SPEC WHEN PFRMD 10/23/2012 Colonoscopy repeat 10 years D&C, DIAG AND/OR THERAPEUTIC SKIN BX, 1 LESION for rash TONSILLECTOMY & ADENOIDECTOMY <AGE 14 age 27 ALLERGIES Erythromycin MEDICATIONS brinzolamide (AZOPT) 1 % ophthalmic suspension Brinzolamide (Azopt) 15 ML drops,suspension Active 1 DRP OP TWICE A DAY February 20, 2021 8:36am ALBUTEROL SULFATE (VENTOLIN INHALATION) Inhale as instructed. brimonidine (ALPHAGAN P) 0.1 % drop Use 1 Drop in both eyes three times daily. FAMILY HISTORY Problem Relation Age of Onset Arthritis Mother will be 90 01/31 Heart Mother Hypertension Mother Heart Father Alzheimer's Disease Father Heart Brother GI Sister diverticulitis Social History Tobacco Use Smoking status: Never Smokeless tobacco: Never Vaping Use Vaping Use: Never used Substance Use Topics Alcohol use: Never BP 142/92 Pulse 92 Temp (!) 38.3 C (101 F) Resp 18 Wt 81.6 kg (180 lb) SpO2 98% Review of Systems Constitutional: Positive for chills, fever and malaise/fatigue. HENT: Positive for congestion and sore throat. Negative for ear discharge, ear pain and sinus pain. Eyes: Negative for blurred vision, pain, discharge and redness. Respiratory: Positive for cough. Negative for hemoptysis, sputum production, shortness of breath, wheezing and stridor. Cardiovascular: Negative for chest pain. Gastrointestinal: Positive for diarrhea. Negative for abdominal pain, nausea and vomiting. Musculoskeletal: Positive for myalgias. Skin: Negative for itching and rash. Neurological: Positive for headaches. Negative for dizziness. Objective Physical Exam Constitutional: General: She is not in acute distress. Appearance: She is not diaphoretic. HENT: Head: Normocephalic. Nose: Congestion present. Mouth/Throat: Mouth: Mucous membranes are moist. Pharynx: Oropharynx is clear. No oropharyngeal exudate or posterior oropharyngeal erythema. Eyes: Conjunctiva/sclera: Conjunctivae normal. Pupils: Pupils are equal, round, and reactive to light. Cardiovascular: Rate and Rhythm: Normal rate and regular rhythm. Heart sounds: Normal heart sounds. Pulmonary: Effort: Pulmonary effort is normal. No tachypnea, accessory muscle usage or respiratory distress. Breath sounds: Normal breath sounds. No stridor. No wheezing, rhonchi or rales. Abdominal: Palpations: Abdomen is soft. Tenderness: There is no abdominal tenderness. There is no guarding or rebound. Musculoskeletal: Cervical back: Normal range of motion and neck supple. No rigidity or tenderness. Lymphadenopathy: Cervical: No cervical adenopathy. Skin: General: Skin is warm and dry. Neurological: Mental Status: She is alert and oriented to person, place, and time. ASSESSMENT/PLAN: 1. Suspected COVID-19 virus infection - ICD9: V01.79, ICD10: Z20.822 - COVID WITH FLUA+B, ROUTINE Patient diagnosed with suspected COVID-19. Supportive therapies discussed. Is interested in antiviral therapy if positive for COVID-19. Red flags for prompt reevaluation discussed. Patient was educated on supportive therapies. Patient will follow up with primary care provider as needed. Patient was instructed to immediately proceed to emergency room for any new, worsening, or symptoms lasting longer than anticipated. The patient's clinical presentation is otherwise unremarkable at this time. Based on exam and clinical finding, the patient is stable for discharge. Plan of care was discussed with patient. Patient verbalizes understanding and agrees to plan of care. This note was generated using [employer] software. It may contain errors in wording, punctuation, or spelling. Bg Allison APRN.EMMANUEL documented in this encounter [facility] Progress note 12-23-2021 Note Date & Type Note Facility 12-23-2021 Note HNO ID: [id number] Author: RT Alexandra(R) Service: Radiology Author Type: Technologist Type: Progress Notes Filed: 12/23/2021 10:57 AM Note Text: Radiology Service Progress Note PATIENT NAME: Shira Murphy DATE OF SERVICE: December 23, 2021 TIME: 10:46 AM PATIENT IDENTITY VERIFICATION COMPLETED USING TWO (2) IDENTIFIERS: Name and Date of confirmed by patient verbally. FALL SCREENING: Has the patient had 2 falls in the last year or 1 fall with injury or currently using an Ambulatory Assistive Device (Walker, Cane, Wheelchair, Crutches, etc.)? No PATIENT GENDER DATA: Female. status: : No status: NO. PATIENT RELEVANT IMPLANT DATA REVIEWED: Yes RADIOLOGY DEPARTMENT: General X-ray: Exam(s) Completed: Lower Extremity X-Ray(s): Foot, Right PERIPHERAL IV DATA: Not applicable SIGNED BY: RT Alexandra(R) December 23, 2021 10:46 AM [facility] Progress note 12-23-2021 Note Date & Type Note Facility 12-23-2021 Note HNO ID: [id number] Author: Selam Carney Service: ? Author Type: Physician Type: Progress Notes Filed: 12/23/2021 10:40 AM Note Text: Consultation requested by Dr. Walker for an opinion regarding right foot fracture. My final recommendations will be communicated back to the requesting physician by way of shared Medical record or letter to requesting physician via US mail. Initial Podiatric Office Visit: Chief Complaint: This 81 year old female who presents with chief complaint:fracture of right navicular HPI Patient presents to clinic for evaluation of right foot. Last week, patient was walking on her dog and her foot slipped outward causing her to fall. She went to urgent care and had xrays of ankle. She was told she has avulsion fracture of navicular. She is taking tylenol as needed and using boot. She states the pain is tolerable. She does have pain in right hip and she thinks this may be the result of using the boot. PAIN EVALUATION 12/23/2021 [id number] Pain Level: 2 Pain Location: Foot-Right Description: Tingling Duration Amount of Time: 1 Duration Units: Weeks Frequency: Continuous Intervention/Comfort measure: Medication No results found for: HBA1C PCP: Rhina Castaneda MD PAST MEDICAL HISTORY Diagnosis Date - Asthma seasonal - Glaucoma - Hemorrhage of gastrointestinal tract, unspecified - Internal hemorrhoids without mention of complication Current Outpatient Medications Medication Sig - brinzolamide (AZOPT) 1 % ophthalmic suspension Brinzolamide (Azopt) 15 ML drops,suspension Active 1 DRP OP TWICE A DAY February 20, 2021 8:36am - ALBUTEROL SULFATE (VENTOLIN INHALATION) Inhale as instructed. - brimonidine (ALPHAGAN P) 0.1 % Drop Use 1 Drop in both eyes three times daily. No current facility-administered medications for this visit. ALLERGIES Allergen Reactions - Erythromycin GI Upset PAST SURGICAL HISTORY Procedure Laterality Date - COLONOSCOPY FLX DX W/COLLJ SPEC WHEN PFRMD 10/23/2012 Colonoscopy repeat 10 years - DANDC, DIAG AND/OR THERAPEUTIC - SKIN BX, 1 LESION for rash - TONSILLECTOMY AND ADENOIDECTOMY age 27 FAMILY HISTORY Problem Relation Age of Onset - Arthritis Mother will be 90 01/31 - Heart Mother - Hypertension Mother - Heart Father - Alzheimer's Disease Father - Heart Brother - GI Sister diverticulitis Social History Tobacco Use - Smoking status: Never Smoker - Smokeless tobacco: Never Used Vaping Use - Vaping Use: Never used Substance Use Topics - Alcohol use: Never - Drug use: Not on file REVIEW OF SYSTEMS GENERAL: Negative for Malaise, significant weight loss, fever RESPIRATORY: Negative for cough, wheezing and shortness of breath CARDIOVASCULAR: Negative for chest pain, leg swelling and palpitations GI: Negative for abdominal discomfort, blood in stools or black stools and change in bowel habits : Negative for dysuria, frequency and incontinence MUSCULOSKELETAL: Negative for joint pain or swelling, back pain, and muscle pain. SKIN: Negative for lesions, rash, and itching. HEMATOLOGY/LYMPHOLOGY Negative for prolonged bleeding, bruising easily, and swollen nodes. ENDOCRINE: Negative for cold or heat intolerance, polyuria, polydipsia and goiter. NEURO: negative Physical Exam: Constitutional: Pt is a well developed 81 year old female who is alert, oriented and cooperative Eyes: Following during examination. No redness or drainage. Respiratory: RR normal and nonlabored. Even breathing. No evidence of distress or shortness of breath. Psychology: Patient is engaged during conversation. Normal affect and mood. Does not appear depressed or anxious during encounter. Vascular: Dorsalis pedis and posterior tibial pulses palpable right Capillary Fill time < 5 seconds to digits 1-5 right Skin temperature warm to warm proximal to distal right Hair growth present to digits Neurological: intact light touch/epicritic sensation right intact protective sensation no significant neurological deficits Dermatological: Nails 1-5 right appear normal. Webspaces clean and dry 1-4 right. Skin appears well hydrated and supple. good color, texture, turgor. No open lesions present. Callus is present to right lateral midfoot Musculoskeletal/Orthopaedic: Patient has pain to palpation of right midfoot and right navicular AJ ROM is full with knee extended and flexed 1st MPJ is full when loaded and no pain or crepitus are noted with ROM. MTJ, STJ are full and free of pain and crepitus. +5/5 muscle strength dorsiflexion, plantarflexion, inversion, eversion right Radiographs: 3 views right ankle reviewed December 23, 2021: I have personally reviewed and interpreted these XR myself: nondisplaced avulsion fracture of right navicular ASSESSMENT: (S92.254A) Closed nondisplaced fracture of navicular bone of right foot, initial encounter (primary encounter diagnosis) (S93.601A) Sprain o (more content not included)... [facility] Progress note 12-15-2021 Note Date & Type Note Facility 12-15-2021 Note HNO ID: [id number] Author: Trice Marmolejo RT(R) Service: Nuclear Medicine Author Type: Technologist Type: Progress Notes Filed: 12/15/2021 5:29 PM Note Text: Radiology Service Progress Note PATIENT NAME: Shira Murphy DATE OF SERVICE: December 15, 2021 TIME: 5:16 PM PATIENT IDENTITY VERIFICATION COMPLETED USING TWO (2) IDENTIFIERS: Name and Date of confirmed by patient verbally. FALL SCREENING: Has the patient had 2 falls in the last year or 1 fall with injury or currently using an Ambulatory Assistive Device (Walker, Cane, Wheelchair, Crutches, etc.)? No PATIENT GENDER DATA: Female. status: : No status: NO. PATIENT RELEVANT IMPLANT DATA REVIEWED: Not Applicable RADIOLOGY DEPARTMENT: General X-ray: Exam(s) Completed: Lower Extremity X-Ray(s): Ankle, Right PERIPHERAL IV DATA: Not applicable SIGNED BY: RT Micha(R) December 15, 2021 5:16 PM [facility] Progress note 12-15-2021 Note Date & Type Note Facility 12-15-2021 Note HNO ID: [id number] Author: Karina Walker APRN.WO[employer]WORK SALVAGE INSPECTOR Service: ? Author Type: Nurse Practitioner Type: Progress Notes Filed: 12/15/2021 6:29 PM Note Text: Subjective The history is provided by the patient and a relative. Shira Murphy is a 81 year old female who presents with a history of fall onset 45 minuets ago. She was walking dog, slipped on ice, hyperextending foot underneath her. Intensity: 7 Injury: Yes: hyperextension Previous ankle injury: No Previous foot No Difficulty ambulating: Yes BP 136/86 Pulse 80 Temp 36.6 ?C (97.9 ?F) Resp 16 SpO2 99% Social History Tobacco Use - Smoking status: Never Smoker - Smokeless tobacco: Never Used Substance Use Topics - Alcohol use: Not on file - Drug use: Not on file PAST MEDICAL HISTORY Diagnosis Date - Glaucoma - Hemorrhage of gastrointestinal tract, unspecified - Internal hemorrhoids without mention of complication I have confirmed and edited as necessary, the [facility] Review of Systems Constitutional: Negative for chills and fever. Musculoskeletal: Positive for joint pain (right ankle/foot). Negative for myalgias. Skin: Negative for itching and rash. All other systems reviewed and are negative. Objective Physical Exam Vitals and nursing note reviewed. Cardiovascular: Rate and Rhythm: Normal rate and regular rhythm. Pulses: Dorsalis pedis pulses are 2+ on the right side and 2+ on the left side. Posterior tibial pulses are 2+ on the right side and 2+ on the left side. Heart sounds: Normal heart sounds. Pulmonary: Effort: Pulmonary effort is normal. Breath sounds: Normal breath sounds. Musculoskeletal: Right foot: Decreased range of motion. Normal capillary refill. Swelling, tenderness and bony tenderness present. No deformity, bunion, Charcot foot, foot drop, prominent metatarsal heads, laceration or crepitus. Normal pulse. Left foot: Normal. Legs: Skin: General: Skin is warm and dry. Neurological: Mental Status: She is alert and oriented to person, place, and time. Sensory: Sensation is intact. Deep Tendon Reflexes: Reflexes are normal and symmetric. Psychiatric: Mood and Affect: Affect normal. Placed in one DJO boot for right foot Motor and sensory and pulses intact distal to boot ASSESSMENT/PLAN: 1. Injury of right foot, initial encounter - ICD9: 959.7, ICD10: S99.921A (primary diagnosis) - XR ANKLE GENERAL 3V AP/LAT/OBL RIGHT 2. Foot pain, right - ICD9: 729.5, ICD10: M79.671 - XR ANKLE GENERAL 3V AP/LAT/OBL RIGHT 3 views of the right ankle are obtained. There is a tiny bone fragment along the dorsal aspect of the navicular bone. There is right talonavicular joint space narrowing with a subchondral cyst in the right navicular bone. No dislocation. Impression: 1. Tiny bone fragment along the dorsal aspect of the navicular bone which could represent an avulsion fracture Interpreted by : SONJA CORONA MD 3. Closed avulsion fracture of navicular bone of right foot, initial encounter - ICD9: 825.22, ICD10: S92.251A Leave boot on when up Off for bathing and bed Ice when off Tylenol (generic acetaminophen) 500 mg-2 tabs every 8 hrs. as needed for pain Follow up with podiatry in 1 week - CONSULT TO PODIATRY Diagnosis and treatment plan were discussed and questions were answered to the patient's satisfaction. Pt acknowledged understanding of concepts and follow up plan. Specific signs and symptoms that would indicate the need for higher level of care were discussed in detail warranting prompt ER evaluation. Karina Walker APRN.WO[employer]WORK SALVAGE INSPECTOR [facility] Evaluation note Note Date & Type Note Facility documented in this encounter [facility] Infection Onset Date Last Indicated Resolved Time COVID-19 Rule-Out 09/12/2022 09/12/2022 Infection Onset Date Last Indicated Resolved Time COVID-19 Confirmed 09/12/2022 09/12/2022 Summary Purpose Family History No Family History Records Found Advance Directives No Advanced Directives Records Found Additional Source Comments Source Comments (unrecognize d section and content) In the event this informatio n is protected by the Federal Confidentiality of Alcohol and Drug Abuse Patient Records regulations: The Federal rules restrict any use of the information to criminally investigate or prosecute any alcohol or drug abuse patient[facility] event this information is protected by the Federal Confidentiality of Alcohol and Drug Abuse Patient Records regulations: The Federal rules restrict any use of the information to criminally investigate or prosecute any alcohol or drug abuse patient.[facility] Reason for Visit (unrecogniz ed section and content) Reason Comments Results Care Teams (unrecognized sec tion and content) 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 This clinical summary was aggregated from multiple sources. Caution should be exercised in using it in the provision of clinical care. This summary normalizes information from multiple sources, and as a consequence, information in this document may materially change the coding, format and clinical context of patient data. In addition, data may be omitted in some cases. CLINICAL DECISIONS SHOULD BE BASED ON THE PRIMARY CLINICAL RECORDS. [facility]. provides no warranty or guarantee of the accuracy or completeness of information in this document.
[2024-01-27 15:45] LABS: Glucose 73 mg/dL (74-106)
[2024-01-27 16:09] LABS: Hemoglobin A1c 5.6 % (3.8-5.6)
[2024-01-27 18:55] LABS: Vitamin B12 429 pg/mL (211-911)
== END | disposition home or self-care (01) ==
PROVIDERS: PCP Family Medicine; Referring Provider Podiatrist; Visit Provider Podiatrist
DX: G60.8 Other hereditary and idiopathic neuropathies (principal)
CPT/HCPCS: 36415; 82607; 82947; 83036

== ENCOUNTER 2024-05-06 13:33 | Emergency (ER) | payer BC, SELFPAY ==
[2024-05-06 13:34] VITALS: BP 159/66; PULSE 83; RESP 16; TEMP 36.2; O2SAT 98; BMI 31.4
--- NOTE | 2024-05-06 13:54 | EDS_ITS ---
HPI <BIA Zeng - Last Filed: 05/06/24 14:07> History of Present Illness Chief Complaint: Lower Extremity Injury Narrative Narrative: Patient states last night she developed swelling and pain behind her left knee. She states he has been very active gardening and walked a mile and a half with her low neighbor last night and felt fine. It felt uncomfortable when she was lying down in bed and she noticed the swelling this morning. There is no pain radiating up the thigh or into the calf. No trauma. She states in the past she has been told she had phlebitis because she had puffiness in both inner shins and wears compression stockings as needed. She also has varicose veins. She has no history of DVT/PE. No recent travel or immobilization, chest pain, shortness of breath, cough or hemoptysis. PFSH <BIA Zeng - Last Filed: 05/06/24 14:07> [facility] Medical History Glaucoma Home Medications ?Medication ?Instructions ?Recorded ?Last Taken ?Type brimonidine 0.15 % eye drops 1 drp EACH EYE BID 03/21/16 11/06/19 History albuterol sulfate 90 mcg/actuation 2 puff inhalation Q6H PRN Sob &/Or 02/19/21 Unknown History aerosol inhaler (Ventolin HFA) Wheezing fexofenadine 180 mg tablet 180 mg PO DAILY PRN Allergies 02/19/21 Unknown History (Shima Allergy) brinzolamide 1 % eye 1 drp OP BID 02/20/21 Unknown History drops,suspension ondansetron 4 mg disintegrating 4 mg PO Q8H PRN PRN Nausea #10 tabs 01/28/23 Unknown Rx tablet Allergy/AdvReac Type Severity Reaction Status Date / Time bupivacaine (From Allergy Severe Other Verified 05/06/24 13:37 Marcaine-Epinephrine) epinephrine (From Allergy Severe Other Verified 05/06/24 13:37 Marcaine-Epinephrine) lansoprazole (From Prevacid) Allergy Mild PT UNSURE Verified 05/06/24 13:37 OF REACTION erythromycin base Allergy Unknown Verified 05/06/24 13:37 Family History Grandfather CVA (cerebral vascular accident) Grandmother CVA (cerebral vascular accident) Cancer stomach Mother Heart disease Brother Diabetes Heart disease Surgical History Hx of colonoscopy Hx of tonsillectomy S/P D&C (status post dilation and curettage) Social History Smoking Status: Never smoker alcohol intake: never ROS <BIA Zeng - Last Filed: 05/06/24 14:07> ROS ED ROS Narrative Constitutional: Negative for fever, chills, malaise. CVS: Negative for chest pain Respiratory: Negative for shortness of breath, cough. Neuro: Negative for motor/sensory dysfunction. Skin: Negative for rash, abscess, or wound. EXAM <BIA Zeng - Last Filed: 05/06/24 14:07> Physical Exam Narrative Exam Narrative: CONST: Patient sitting in no acute distress. EYES: Normal inspection. NECK: Normal inspection. RESP: No respiratory distress, CTAB. CVS: Regular rate and rhythm, no murmur, no gallop. SKIN: Color normal, no rash, warm, dry, intact. EXTREMITIES: Normal appearance of both lower extremities no edema. Varicose veins throughout. Full range of motion of all joints, no bony tenderness, 5/5 strength in hip flexion and DF/PF, normal sensation, 2+ DP pulses. Slight fullness and tenderness in the left popliteal region, no warmth redness or palpable cords. No tenderness over the medial thigh or calf. NEURO: Alert and answering questions appropriately. PSYCH: Normal affect. Const Vital Signs: 05/06/24 13:34 Temperature 97.1 F L Temperature Source Temporal Pulse Rate 83 Respiratory Rate 16 Blood Pressure 159/66 H Blood Pressure Mean 97 Pulse Ox 98 Oxygen Delivery Method Room Air <Dr. Andrew Green MD - Last Filed: 05/06/24 14:10> Physical Exam Const Vital Signs: 05/06/24 13:34 Temperature 97.1 F L Temperature Source Temporal Pulse Rate 83 Respiratory Rate 16 Blood Pressure 159/66 H Blood Pressure Mean 97 Pulse Ox 98 Oxygen Delivery Method Room Air MDM <BIA Zeng - Last Filed: 05/06/24 14:07> [facility] Narrative Medical decision making narrative: Differential: Musculoskeletal, Ugarte's cyst, DVT, varicose veins Patient has pain and swelling in the left popliteal region since last night. No injury although she has been very active recently gardening and walking. She appears well and nontoxic. Vital signs stable. There is slight fullness and tenderness in the left popliteal region with no palpable cords. No evidence of infection. Extremity is full range of motion and is neurovascularly intact. She has no history of blood clots or risk factors for DVT/PE. Ultrasound is not available on Tuesday but I provided a prescription to have a left leg ultrasound performed tomorrow. I think she is low risk for DVT and does not require anticoagulation. I recommended Tylenol in the meantime. She was comfortable with this plan and discharged in stable condition. <Dr. Andrew Green MD - Last Filed: 05/06/24 14:10> [facility] Narrative Medical decision making narrative: Differential: Musculoskeletal, Ugarte's cyst, DVT, varicose veins Patient has pain and swelling in the left popliteal region since last night. No injury although she has been very active recently gardening and walking. She appears well and nontoxic. Vital signs stable. There is slight fullness and tenderness in the left popliteal region with no palpable cords. No evidence of infection. Extremity is full range of motion and is neurovascularly intact. She has no history of blood clots or risk factors for DVT/PE. Ultrasound is not available on Tuesday but I provided a prescription to have a left leg ultrasound performed tomorrow. I think she is low risk for DVT and does not require anticoagulation. I recommended Tylenol in the meantime. She was comfortable with this plan and discharged in stable condition. I have personally performed a face to face assessment of the patient and have reviewed the SERA Note. I performed a substantive portion of the visit including all aspects of the following. My browning findings include: History is 84-year-old female that I had a lot of walking yesterday like a mile and a half and did some yard work. Last evening today she had some mild discomfort just behind her left knee. No history of DVT or PE risk factors. No chest pain or shortness of breath. No prior knee history or knee complaints. Exam is [well-appearing 84-year-old female. Vital signs stable afebrile. H EENT exam unremarkable. Lungs clear. Heart regular rhythm no murmur. Chest wall nontender. Abdomen soft nontender. Moving all 4 extremities. Neurovascularly intact. 5-5 ad setter strength. Dorsi plantarflexion intact. Normal DP pulse. Calves are nontender without edema or cords. Just behind her left knee there is a small area of tenderness. There is no redness or warmth or discoloration. She has multiple varicose veins in both legs. No obvious signs of superficial thrombophlebitis. No cords. She has normal flexion extension of her knee. Most likely this is musculoskeletal in etiology may be inflammation.] Medical Decision Making [84-year-old with atraumatic left popliteal fossa pain. Will obtain an ultrasound that will be available tomorrow morning. Most likely this is musculoskeletal in etiology. Possibly could be a Ugarte's cyst. Ice to the area. Tylenol Motrin for pain. Follow-up tomorrow for the noninvasive study which the patient is comfortable with the plan.] Other additions or changes: [None] Discharge Plan Triage Chief Complaint: Lower Extremity Injury ED Midlevel Provider: Ju Goss ED Provider: Andrew Green Dx/Rx/DC Orders Clinical Impression: Left leg pain Instructions: ED Pain, Acute, Uncertain Cause Prescriptions: No Action albuterol sulfate [Ventolin HFA] 90 mcg/actuation HFA aerosol inhaler 2 puff INHALATION Q6H PRN (Reason: Sob &/Or Wheezing) fexofenadine [Shima Allergy] 180 mg tablet 180 mg PO DAILY PRN (Reason: Allergies) brimonidine 1 DROP bottle 1 drp EACH EYE BID brinzolamide 15 ML drops,suspension 1 drp OP BID ondansetron [ondansetron] 4 mg tablet,disintegrating 4 mg PO Q8H PRN PRN (Reason: Nausea) Qty: 10 0RF Other Ambulatory Orders: Venous Duplex US, Unilateral (Stat) Facility: [facility] - Location: [facility] Ordered By: Ju Goss Primary Care Provider: Rhina Castaneda Referrals: Rhina Castaneda MD [Primary Care Provider] - Activity Restrictions/Additional Instructions: You should receive a call tomorrow before 10 AM to schedule your ultrasound. If you do not receive a phone call please call the emergency room. You will be scheduled for an ultrasound of your leg tomorrow to check for blood clots. In the meantime I recommend ice and Tylenol. Print Language: Spanish Disposition Disposition: Home, Self Care
[2024-05-06 14:07] VITALS: BP 186/72; PULSE 86; RESP 17; TEMP 36.6; O2SAT 95
== END 2024-05-06 14:15 | disposition home or self-care (01) ==
LOC: ED 14:04
PROVIDERS: Emergency Provider Emergency Medicine; PCP Family Medicine; Visit Provider Emergency Medicine
DX: M79.605 Pain in left leg (principal)
CPT/HCPCS: 99282

== ENCOUNTER → 2024-05-07 | Outpatient (CLI) | payer BC, SELFPAY ==
--- NOTE | 2024-05-07 10:45 | VDLE_ITS ---
Reason For Study: Left leg pain RIGHT LEFT CFV is compressible, spontaneous, phasic, GSV is normal. competent and demonstrates normal CFV is compressible, spontaneous, phasic, augmentation. competent, and demonstrates normal Procedure augmentation. This is a venous duplex using B-mode, color FV is compressible, spontaneous, phasic, flow and spectral Doppler. competent and demonstrates normal Exam performed in department. augmentation. A preliminary report was called and/or faxed POP V is compressible, spontaneous, phasic, to PCP: Leonel. competent and demonstrates normal augmentation. T/P Trunk is compressible. PTV is compressible. LT PerV is compressible. VL/Venous Duplex US, Unilateral Interpretation Summary There is no evidence of left lower extremity deep vein thrombosis. Left great s aphenous vein appears patent and compressible segmentally. Normal flow patterns right common femoral vein Ordering Physician: Ju Goss Referring Physician: Rhina Castaneda M.D. Performed By: Valerie Baldwin RVT
== END | disposition home or self-care (01) ==
LOC: CVS 10:43
PROVIDERS: PCP Family Medicine; Visit Provider Physician Assistant
DX: M79.605 Pain in left leg (principal)
CPT/HCPCS: 93971

== ENCOUNTER → 2024-05-22 | Outpatient (CLI) | payer BC, SELFPAY ==
[2024-05-22 11:47] LABS: Absolute Lymphocyte Count 1.21 X10^3/uL (0.83-4.51); Absolute Neutrophil Count 4.7 X10^3/uL (2.0-7.7); Basophil# 0.07 X10^3/uL; Basophil% 1.1 % (0-1); Eosinophil# 0.13 X10^3/uL; Hematocrit 44.9 % (37-47); Hemoglobin 14.7 g/dL (12.0-15.0); Lymphocyte # 1.21 X10^3/ul (0.83-4.51); Lymphocyte % 18.3 % (19-41); Mean Corp Hgb Conc 32.7 g/dL (32-36); Mean Corpuscular Hgb 30.6 pg (27.0-32.0); Mean Corpuscular Volume 93.5 fL (81-99); Mean Platelet Vol. 9.6 fl (6.2-12.0); Monocyte# 0.46 X10^3/uL; Monocyte% 6.9 % (0-10); NRBC Flagged by Analyzer 0 % (0-5); Neutrophil # 4.73 X10^3/uL (2.7-7.7); Neutrophil % 71.2 % (47-70); Platelet Count 263 K/mm3 (150-450); RBC Distribution Width CV 13.7 % (11.6-14.6); RBC Distribution Width SD 46.5 fl (35.1-43.9); White Blood Count 6.6 K/mm3 (4.4-11.0)
[2024-05-22 12:02] LABS: AST(SGOT) 12 U/L (15-37); Alanine Aminotransfer ALT/SGPT 18 U/L (13-56); Albumin, Serum 3.7 g/dL (3.2-5.0); Alkaline Phosphatase 93 U/L (45-117); Anion Gap 5 (5-15); BUN 24 mg/dL (7-18); BUN/Creat Ratio 29.9 RATIO (10-20); Calcium,Total 8.9 mg/dL (8.5-10.1); Chloride 106 mmol/L (98-107); EST Glomerular Filtration Rate 73 mL/min (>60); Est Glom Filt Rate - Afr Amer 88 mL/min (>60); Globulin 3.7 g/dL (2.2-4.2); Glucose 98 mg/dL (74-106); LDH 162 U/L (84-246); Potassium 4.3 mmol/L (3.5-5.1); Protein, Total 7.4 g/dL (6.4-8.2); Sodium Level 138 mmol/L (136-145)
[2024-05-22 19:44] LABS: Xtra Tube EP Lab EXTRA TUBE
[2024-05-25 08:07] LABS: Alpha-1-Globulins 0.2 g/dL (0.0-0.4); Alpha-2-Globulins 0.7 g/dL (0.4-1.0); Free Kappa Light Chains 24.8 mg/L (3.3-19.4); Free Lambda Light Chains 10.3 mg/L (5.7-26.3); Gamma Globulin 1.1 g/dL (0.4-1.8); Immunoglobulin A 165 mg/dL (64-422); Immunoglobulin G 1141 mg/dL (586-1602); Immunoglobulin M 83 mg/dL (26-217)
== END | disposition home or self-care (01) ==
LOC: PAVLAB 11:31
PROVIDERS: PCP Family Medicine; Visit Provider Internal Medicine Medical Oncology
DX: D47.2 Monoclonal gammopathy (principal)
CPT/HCPCS: 36415; 80053; 82784; 83615; 83883; 84165; 85025; 86334

== ENCOUNTER 2024-11-30 08:52 | Day surgery (SDC) | payer BC, SELFPAY ==
[2024-11-30] VITALS (8 sets, daily range): BP systolic 79–157; BP diastolic 42–63; PULSE 58–80; RESP 14–16; TEMP 36.3–36.6; O2SAT 96–100; BMI 31.2
--- NOTE | 2024-11-30 09:46 | PRE.ANES_ITS ---
ASA Classification* ASA Classification ASA Classification: 2 Assessment & Plan Anesthesia* Anesthesia Assessment Anesthesia Assessment: Discussed sedation and/or anesthesia options, risks, benefits, and alternatives with patient/parents/legal guardian/POA. Questions invited. The patient/parents/legal guardian/POA seems to understand and agrees to proceed with anesthesia plan. Reviewed the physical assessment, medical history, allergy history and patient home medications list prior to surgery/procedure/anesthetic and documented any changes. Performed airway and anesthesia risk assessments. Anesthesia Type Anesthesia Type: MAC History Source History Obtained from:: Patient and Chart Anesthesia Focused Assessment* Temperature: 97.8 F Pulse Rate: 80 Blood Pressure: 157/63 Respiratory Rate: 16 Pulse Ox: 100 Oxygen Delivery Method: Room Air Airway Assessment Mouth opens: >3 cm Mallampati Score: II Teeth Condition: Caps/Crowns (Patient has a couple of crowns. Also an implant. They are all tight.) Neck Range of motion (ROM): Limited ROM (Slight decreased extension) Focused Labs Anesthesia Preop lab: CBC WBC 6.6 K/mm3 (4.4-11.0) 05/22/24 11:40 RBC 4.80 M/mm3 (4.2-5.4) 05/22/24 11:40 Hgb 14.7 g/dL (12.0-15.0) 05/22/24 11:40 Hct 44.9 % (37-47) 05/22/24 11:40 Plt Count 263 K/mm3 (150-450) 05/22/24 11:40 CHEMISTRY Potassium 4.3 mmol/L (3.5-5.1) 05/22/24 11:40 Sodium 138 mmol/L (136-145) 05/22/24 11:40 BUN 24 mg/dL (7-18) H 05/22/24 11:40 Creatinine 0.80 mg/dL (0.55-1.02) 05/22/24 11:40 Glucose 98 mg/dL (74-106) 05/22/24 11:40 TSH 2.13 uIU/mL (0.358-3.74) 11/05/19 16:33 COAG Pre-Assessment Diagnosis/Proposed Procedure Planned Operative Procedure(s): COLONOSCOPY Anesthesia History Anesthesia History - nail specialist: Anesthesia History - nail specialist Hx Hospitalization No 11/28/24 10:02 Any Problems With Anesthesia No 11/28/24 10:02 Cholinesterase deficiency No 11/28/24 10:02 You/Your Family Experience No 11/28/24 10:02 fever (hyperthermia) with Relationship Recent Exposure to Contagious No 11/30/24 09:14 Disease Does patient have nerve No 11/28/24 10:02 stimulator Patient instructed to have device shut off --Does patient have Pacemaker No 11/30/24 09:14 or ICD? When Was Last Pacemaker Check QUESTION #4 FULL TEXT: You/Your Family Experience fever (hyperthermia) with Anesthesia Last Oral Intake Last Oral intake: Last Oral Intake NPO since 00:00 11/30/24 09:14 Meds taken in AM with sips of No 11/30/24 09:14 water? Meds patient instructed to take am of surgery PONV PONV - nail specialist: PONV - nail specialist Female Yes 11/28/24 10:02 HX of Motion Sickness Yes 11/28/24 10:02 HX of N/V After Surgery No 11/28/24 10:02 Non-Smoker Yes 11/28/24 10:02 Duration of Surgery greater No 11/28/24 10:02 than 60 minutes Number of Risk Factors 3 11/28/24 10:02 PONV Score Moderate Risk 11/28/24 10:02 Height & Weight Height & Weight: Anesthesia: Height & Weight Height 5 ft 3 in 11/30/24 09:14 Weight: 80 kg 11/30/24 09:14 Body Mass Index (BMI) 31.2 11/30/24 09:14 Respiratory Assessment Respiratory Assessment - nail specialist: Respiratory Tract Infection Hx - nail specialist Hx Respiratory Tract Infection Yes: NAUSEATED TODAY 11/28/24 10:02 2024 Any additional information?: Yes Hx Respiratory Tract Infection: No STOP Sleep Apnea STOP Sleep Apnea - nail specialist: STOP Sleep Apnea - nail specialist Hx Hypertension No 11/28/24 10:02 Hx Sleep Apnea No 11/28/24 10:02 CPAP BIPAP Do you snore loudly (louder No 11/28/24 10:02 than talking or can be heard Do you often feel tired/ No 11/28/24 10:02 fatigued/ sleepy during daytime? Has anyone observed you stop No 11/28/24 10:02 breathing during sleep? STOP Results Negative 11/28/24 10:02 QUESTION #5 FULL TEXT : Do you snore loudly (louder than talking or can be heard through closed doors)? 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 Specify any problems Hx of Preganancy in last 3 No 11/28/24 10:02 Months Nurse Filling Out Transfusion VCHRISTIN 11/28/24 10:02 & Questions: Date: 11/28/24 11/28/24 10:02 Time: 10:04 11/28/24 10:02 Patient unable to answer at this time (ie. confused, unrespo /Reproduction History /Reproductive History - nail specialist: /Reproductive Hx- nail specialist Hx Now Gestational Age (in weeks): EDC: Hx Hx Para Hx Section SAB PFSH Medical History Cancer Post-menopausal Rash History of steroid therapy Arthritis Migraine headache Gastric reflux Asthma History of irregular heartbeat Tendonitis of left knee Glaucoma Home Medications ?Medication ?Instructions ?Recorded ?Last Taken ?Type brimonidine 0.15 % eye drops 1 drp EACH EYE BID 03/21/16 11/30/24 History albuterol sulfate 90 mcg/actuation 2 puff inhalation Q6H PRN Sob &/Or 02/19/21 Unknown History aerosol inhaler (Ventolin HFA) Wheezing fexofenadine 180 mg tablet 180 mg PO DAILY PRN Allergies 02/19/21 Unknown History (Shima Allergy) brinzolamide 1 % eye 1 drp OP BID 02/20/21 11/30/24 History drops,suspension ondansetron 4 mg disintegrating 4 mg PO Q8H PRN PRN Nausea #10 tabs 01/28/23 Unknown Rx tablet Allergy/AdvReac Type Severity Reaction Status Date / Time bupivacaine (From Allergy Severe Other Verified 11/30/24 09:13 Marcaine-Epinephrine) dorzolamide (From Trusopt) Allergy Severe Other Verified 11/30/24 09:13 epinephrine (From Allergy Severe Other Verified 11/30/24 09:13 Marcaine-Epinephrine) lansoprazole (From Prevacid) Allergy Mild PT UNSURE Verified 11/30/24 09:13 OF REACTION erythromycin base Allergy Unknown Verified 11/30/24 09:13 Family History Grandfather CVA (cerebral vascular accident) Grandmother CVA (cerebral vascular accident) Cancer stomach Mother Heart disease Brother Diabetes Heart disease Surgical History Hx of bilateral cataract extraction History of tooth extraction Hx of tonsillectomy Hx of colonoscopy S/P D&C (status post dilation and curettage) Social History Smoking Status: Never smoker alcohol intake: never Review of Systems (Anesthesia) ROS Narrative System reviewed and no additional complaints, except as documented. Physical Exam Resp clear to auscultation bilaterally
--- NOTE | 2024-11-30 10:00 | COLBX_PTH ---
PATIENT: ASHLEY ADAMSON LOC: EN U#:[id number] AGE/SX: 84/F ROOM: RE11/30/[address]: Dr. Eber Painting MD : 1940 BED: DIS: 11/30/2024 SPEC #: [id number] RECD: 11/30/24 13:49 STATUS: DHARMESH RESandra #: [id number] ROGER: 11/30/24 10:[address]: Eber Painting DEPT: SURGICAL PATHOLOGY RECD BY: Hali Carvajal ENTERED: 11/30/24 14:22 SP TYPE: COLON BX OTHR DR: Dr. Rhina Castaneda MD Tissues: Cecum, NOS Procedures: Surgery Specimen Level IV HEADER OPERATION: Colonoscopy, polypectomy PRE-OP DIAGNOSIS: Encounter for colonoscopy due to history of adenomatous colonic polyps TISSUE SUBMITTED: Cecal polyp MICROSCOPIC DIAGNOSIS Cecal polyp, polypectomy: Hyperplastic polyp. KATERINA.mr 12/03/2024 MICROSCOPIC DESCRIPTION Slides are reviewed. GROSS DESCRIPTION Received in fixative is one container labeled with the patient's name and designated Cecal polyp. The specimen consists of one irregular fragment of light de la rosa soft tissue that measures 0.8 x 0.5 x 0.3 cm. The specimen is totally submitted in one cassette. 11/30/2024 TC:5 CPT:89296
--- NOTE | 2024-11-30 10:19 | PCM.HP.BLA ---
History and Physical Date of Admission: 11/30/24 Intake Vital Signs 05/29/2414:30 10/15/2413:35 Height 5 ft 3 in 5 ft 3 in Weight: 176 lb 7 oz 176 lb BMI 31.2 31.1 BP 133/72 H 142/79 H Blood Pressure Location Lt brachial Rt brachial Position Sitting Sitting Respiration 18 17 Pulse 76 66 Pulse Source Monitor Monitor Temp 98.2 F Pulse Oximetry (%) 96 96 Oxygen Delivery Method room air Intake Visit Reasons: 3 YR COLONOSCOPY RECALL Chief Complaint: 3 year colonoscopy recall Is patient in pain?: No Allergies bupivacaine (From Marcaine-Epinephrine) Allergy (Severe, Verified 10/15/24 13:36) Otherepinephrine (From Marcaine-Epinephrine) Allergy (Severe, Verified 10/15/24 13:36) Otherlansoprazole (From Prevacid) Allergy (Mild, Verified 10/15/24 13:36) PT UNSURE OF REACTIONerythromycin base Allergy (Verified 10/15/24 13:36) Unknown Medications ?Medication ?Instructions ?Recorded ?Confirmed ?Type brimonidine 0.15 % eye drops 1 drp EACH EYE BID 03/21/16 10/15/24 History albuterol sulfate 90 mcg/actuation 2 puff inhalation Q6H PRN Sob &/Or 02/19/21 10/15/24 History aerosol inhaler (Ventolin HFA) Wheezing fexofenadine 180 mg tablet 180 mg PO DAILY PRN Allergies 02/19/21 10/15/24 History (Shima Allergy) brinzolamide 1 % eye 1 drp OP BID 02/20/21 10/15/24 History drops,suspension ondansetron 4 mg disintegrating 4 mg PO Q8H PRN PRN Nausea #10 tabs 01/28/23 10/15/24 Rx tablet Have you fallen in the past year?: No PFSH Medical History (Updated 10/15/24 @ 13:34 by Alisa Raymond) Tendonitis of left knee Glaucoma Surgical History Hx of tonsillectomy Hx of colonoscopy S/P D&C (status post dilation and curettage) Family History Grandfather CVA (cerebral vascular accident)Grandmother CVA (cerebral vascular accident) Cancer stomachMother Heart diseaseBrother Diabetes Heart disease Social History Smoking Status: Never smoker alcohol intake: never HPI HPI HPI: Patient is an 84-year-old female here following up after history of polyp removal. 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 She has not been having issues besides some leakage after bowel movements. She says this does not have every day but it happens for a few days in a row then disappears for a few days. She reports the discharge is stool and is not urine or mucus. She denies any abdominal pain or blood in the stool. ROS General General: No weight change, appetite, fatigue, colon cancer, breast cancer or weakness HEENT HEENT: Yes eye surgery; No difficulty swallowing, eye injury, swollen glands or hoarseness Endo Endocrine: No thyroid disease, diabetes mellitus, thyroid cancer, Hair loss, heat intolerance or cold intolerance Skin Skin: No rash or changing moles Musc Musculoskeletal: Yes arthritis; No back problems, rheumatoid arthritis, gout or joint pain Cardio Cardiovascular: No murmur, pacemaker, heart disease, atrial fibrillation, high blood pressure, heart attack, heart stent, palpitations, shortness of breat with exertion or chest pain Psych Psychiatric: No depression, anxiety or hearing voices Resp Respiratory: No shortness of breath, No sleep apnea, No cough, No COPD, No asthma, No emphysema and No wheezing Gastro Gastrointestinal: No abdominal pain, No nausea or vomiting, No diarrhea, No constipation, Yes blood in stool, No acid reflux, No hemorrhoids, No ulcers, No gallbladder problem and No black,tarry stools Valente Hematologic: No blood thinners, No blood disorders, No bleeding, No anemia and No blood clots Neuro Neurologic: No system reviewed and no additional complaints, except as documented, No as per HPI, No abnormal gait, No abnormal hearing, No abnormal movements, No abnormal speech, No behavioral changes, No burning sensations, No confusion, No convulsions, No disequilibrium, No dizziness, No localized weakness, No frequent falls, No headache(s), No lack of coordination, No loss of vision, No memory loss, No numbness, No other visual disturbances, No radicular pain, No restless legs, No sensory deficit, No syncope, No tingling, No tremor(s), No weakness and No other Exam Const General: cooperative Orientation: alert and oriented x3 HENMT Head: normal to inspection Neck Neck: normal visual inspection and full ROM Chest Chest palpation & inspection: normal inspection of the chest Resp Effort & Inspection: normal respiratory effort Auscultation: clear to auscultation bilaterally Cardio Rate: regular rate Rhythm: regular rhythm GI Inspection: non-distended Palpation: soft and nontender Skin General: no rashes or lesions noted Neuro General: patient alert and patient oriented x3 Extrem General: full ROM Psych Appearance: grossly normal Mental Status: mental status grossly normal Assessment and Plan Assessment and Plan (1) Encounter for colonoscopy due to history of adenomatous colonic polyps: Status: Acute Plan: The patient has 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 We discussed colonoscopy and since she is in good health I would recommend that she have 1 more colonoscopy to evaluate for any polyp or growth. She is also having some discharge after bowel movements which may be from a polyp or mass. I will evaluate I discussed this with her and she is agreeable. I explained endoscopy in detail to the patient. I explained the risks including but not limited to stroke or heart attack with anesthesia, perforation of the GI tract, bleeding, infection. I explained that any of these could necessitate further emergency surgery. The patient understands and all questions were answered sufficiently. The patient wishes to proceed with procedure. Eber Painting MD Pager: [facility] [address] [place] [address], [address] [place] [address] Office: I have examined the patient and the H&P has been reviewed. There are no clinical changes since date of exam.
--- NOTE | 2024-11-30 10:49 | OP.COLON_ITS ---
Patient Name: Shira Murphy Procedure Date: 11/30/2024 10:26 AM Date of : 1940 Age: 84 Procedure: Colonoscopy Indications: High risk colon cancer surveillance: Personal history of colonic polyps Providers: Eber Painting MD Referring MD: Rhina Castaneda Medicines: Propofol per Anesthesia Patient Profile: This is an 84 year old female. Refer to note in patient chart for documentation of history and physical. Last Colonoscopy: more than 3 years ago. Complications: No immediate complications. Estimated blood loss: Minimal. Procedure: Pre-Anesthesia Assessment: - Prior to the procedure, a History and Physical was performed, and patient medications and allergies were reviewed. The patient's tolerance of previous anesthesia was also reviewed. The risks and benefits of the procedure and the sedation options and risks were discussed with the patient. All questions were answered, and informed consent was obtained. Prior Anticoagulants: The patient has taken no anticoagulant or antiplatelet agents. After reviewing the risks and benefits, the patient was deemed in satisfactory condition to undergo the procedure. After I obtained informed consent, the scope was passed under direct vision. Throughout the procedure, the patient's blood pressure, pulse, and oxygen saturations were monitored continuously. The Colonoscope was introduced through the anus and advanced to the cecum, identified by appendiceal orifice and ileocecal valve. The colonoscopy was performed without difficulty. The patient tolerated the procedure well. The quality of the bowel preparation was good. The ileocecal valve, appendiceal orifice, and rectum were photographed. Scope In: 10:33:10 AM Scope Withdrawal Time 0 hours 6 minutes 47 seconds Scope Out: 10:44:51 AM Total Procedure Duration Time 0 hours 11 minutes 41 seconds Findings: A small polyp was found in the cecum. The polyp was removed with a hot snare. Resection and retrieval were complete. A large polyp was found in the rectum. Impression: - One small polyp in the cecum, removed with a hot snare. Resected and retrieved. - One large polyp in the rectum. Recommendation: - Discharge patient to home. - Resume previous diet. - Continue present medications. - Repeat colonoscopy (date not yet determined). - Return to my office in 1 week. Procedure Code(s): --- Professional --- 22888, Colonoscopy, flexible; with removal of tumor(s), polyp(s), or other lesion(s) by snare technique Diagnosis Code(s): --- Professional --- Z86.010, Personal history of colonic polyps D12.0, Benign neoplasm of cecum D12.8, Benign neoplasm of rectum CPT copyright 2021 [employer]. All rights reserved. The codes documented in this report are preliminary and upon manager spanish review may be revised to meet current compliance requirements. Eber Painting MD 11/30/2024 10:48:27 AM This report has been signed electronically. Number of Addenda: 0 Note Initiated On: 11/30/2024 10:26 AM
--- NOTE | 2024-11-30 10:49 | OP.CCLET_ITS ---
11/30/2024 Rhina Castaneda [address] [place] [address] Re : Colonoscopy procedure for Shira Murphy Dear Dr. Castaneda This procedure was performed on Saturday, November 30, 2024. My impressions and recommendations are as follows: Impressions : - One small polyp in the cecum, removed with a hot snare. Resected and retrieved. - One large polyp in the rectum. Recommendations : - Discharge patient to home. - Resume previous diet. - Continue present medications. - Repeat colonoscopy (date not yet determined). - Return to my office in 1 week. My findings are described in the full procedure note, which is enclosed. If I can be of further assistance, please feel free to contact me at Doctor phone number(s): , Work: . Sincerely, Eber Painting MD 11/30/2024 10:48:27 AM This report has been signed electronically.
--- NOTE | 2024-11-30 10:57 | PCM.POST.ANE ---
Anesthesia: Postop Eval I Current Vital Signs Temperature: 97.3 F Pulse Rate: 60 Blood Pressure: 80/44 Respiratory Rate: 14 Pulse Ox: 98 Oxygen Delivery Method: Room Air Assessment Airway patent: Yes Spontaneous unlabored respirations: Yes Mental status: Asleep nausea: No Vomiting: No Anesthesia Complication: No Fluid Hydration Crystalloid volume administer (ml): 40 Total IV fluid infused: 40 Progress Note Anesthesia document: Postop Eval 1 completed: Yes
--- NOTE | 2024-11-30 16:02 | PCM.POSTANE2 ---
Anesthesia Postop Eval I Sum Postop Eval Completion status Anesthesia document: Postop Eval 1 completed: Yes Anesthesia Postop Eval I Summary Anesthesia Postop Eval I Summary: Anesthesia Postop Eval I: Assessment Summary Airway patent Yes 11/30/24 10:58 [email or web address] Spontaneous unlabored Yes 11/30/24 10:58 [email or web address] respirations Mental status Asleep 11/30/24 10:58 [email or web address] nausea No 11/30/24 10:58 [email or web address] Vomiting No 11/30/24 10:58 [email or web address] Anesthesia Postop Eval I: Fluid Summary Crystalloid volume administer 40 11/30/24 10:58 [email or web address] (ml) Colloids volume administered ( ml) Blood Product volume administered (ml) Total IV fluid infused 40 11/30/24 10:58 [email or web address] Anesthesia Postop Eval I: Summary Notes Anesthesia Complication No 11/30/24 10:58 [email or web address] Anesthesia Complication Comment: Post-operative progress note Anesthesia: Postop Eval II Evaluation Mental status: Awake and Calm Pain Level: 0 nausea: No Vomiting: No Complications Anesthesia Complication: No
== END 2024-11-30 11:37 | disposition home or self-care (01) ==
LOC: EN 08:54 → AC 08:55 → ACINP 11:25
PROVIDERS: PCP Family Medicine; Referring Provider Family Medicine; Visit Provider Surgery
PROC: 0DJD8ZZ Inspection of Lower Intestinal Tract, Via Natural or Artificial Opening Endoscopic (ICD-10-PCS; CPT 45378; principal; 2024-11-30 09:55)
DX: Z12.11 Encounter for screening for malignant neoplasm of colon (principal); K63.5 Polyp of colon; Z79.51 Long term (current) use of inhaled steroids; Z86.0100 Personal history of colon polyps, unspecified
CPT/HCPCS: 45385; 88305; A4216; J2405

== ENCOUNTER 2024-12-28 08:51 | Day surgery (SDC) | payer BC, SELFPAY ==
[2024-12-28] VITALS (8 sets, daily range): BP systolic 135–149; BP diastolic 55–66; PULSE 63–82; RESP 16–18; TEMP 35.7–36.3; O2SAT 94–100; BMI 31.3
--- NOTE | 2024-12-28 | POL_PTH ---
PATIENT: ASHLEY ADAMSON [place] [facility] [id number] AGE/SX: 84/F ROOM: RE12/28/[address]: Dr. Eber Painting MD : 1940 BED: DIS: 12/28/2024 SPEC #: [id number] RECD: 12/28/24 10:59 STATUS: DHARMESH ISLAS #: [id number] ROGER: 12/28/24 00:[address]: Eber Painting DEPT: SURGICAL PATHOLOGY RECD BY: Mariam Hoyt ENTERED: 12/28/24 11:48 SP TYPE: Polyp OTHR DR: Dr. Rhina Castaneda MD Tissues: Rectum, NOS Procedures: Surgery Specimen Level IV HEADER OPERATION: Exam under anesthesia, rectal polypectomy PRE-OP DIAGNOSIS: Rectal polyp TISSUE SUBMITTED: Rectal polyp MICROSCOPIC DIAGNOSIS Rectal polyp, polypectomy: Fragments of tubulovillous adenoma. SJ.mr 12/31/2024 MICROSCOPIC DESCRIPTION Slides are reviewed. GROSS DESCRIPTION Received in fixative is one container labeled with the patient's name and designated Rectal polyp. The specimen consists of a pink congested polyp measuring 1.5 x 1.2 x 1cm. The presumed base is inked. Also present in the container is a detached piece of de la rosa soft tissue measuring 1 x 0.2 x 0.1cm. The specimen is submitted entirely in two cassettes as follows: 1- polyp, 2- detached piece of tissue. 12/28/2024 TC:1 CPT:39619
--- NOTE | 2024-12-28 09:07 | HP.PCM_ITS ---
History and Physical Date of Admission: 12/28/24 Intake Vital Signs 11/30/2508:14 12/10/2508:28 Height 5 ft 3 in 5 ft 3 in Weight: 180 lb 8 oz BMI 31.9 BP 144/79 H Blood Pressure Location Rt brachial Position Sitting Respiration 18 Pulse 75 Pulse Source Monitor Pulse Oximetry (%) 100 Oxygen Delivery Method room air Intake Visit Reasons: S/P COLONOSCOPY - DISCUSS SURGERY Chief Complaint: s/p colonoscopy discuss surgery Is patient in pain?: No Allergies bupivacaine (From Marcaine-Epinephrine) Allergy (Severe, Verified 12/10/24 09:29) Otherdorzolamide (From Trusopt) Allergy (Severe, Verified 12/10/24 09:29) Otherepinephrine (From Marcaine-Epinephrine) Allergy (Severe, Verified 12/10/24 09:29) Otherlansoprazole (From Prevacid) Allergy (Mild, Verified 12/10/24 09:29) PT UNSURE OF REACTIONerythromycin base Allergy (Verified 12/10/24 09:29) Unknown Medications ?Medication ?Instructions ?Recorded ?Confirmed ?Type brimonidine 0.15 % eye drops 1 drp EACH EYE BID 03/21/16 12/10/24 History albuterol sulfate 90 mcg/actuation 2 puff inhalation Q6H PRN Sob &/Or 02/19/21 12/10/24 History aerosol inhaler (Ventolin HFA) Wheezing fexofenadine 180 mg tablet 180 mg PO DAILY PRN Allergies 02/19/21 12/10/24 History (Shima Allergy) brinzolamide 1 % eye 1 drp OP BID 02/20/21 12/10/24 History drops,suspension ondansetron 4 mg disintegrating 4 mg PO Q8H PRN PRN Nausea #10 tabs 01/28/23 12/10/24 Rx tablet Have you fallen in the past year?: No PFSH Medical History Cancer Post-menopausal Rash History of steroid therapy Arthritis Migraine headache Gastric reflux Asthma History of irregular heartbeat Tendonitis of left knee Glaucoma Surgical History Hx of bilateral cataract extraction History of tooth extraction Hx of tonsillectomy Hx of colonoscopy S/P D&C (status post dilation and curettage) Family History Grandfather CVA (cerebral vascular accident)Grandmother CVA (cerebral vascular accident) Cancer stomachMother Heart diseaseBrother Diabetes Heart disease Social History Smoking Status: Never smoker alcohol intake: never HPI HPI HPI: Patient is an 84-year-old female who just had a colonoscopy last week. She had a very large polyp in her anal canal. I had her come back to discuss exam under anesthesia with removal ROS General General: No weight change, appetite, fatigue, colon cancer, breast cancer or weakness HEENT HEENT: Yes eye surgery; No difficulty swallowing, eye injury, swollen glands or hoarseness Endo Endocrine: No thyroid disease, diabetes mellitus, thyroid cancer, Hair loss, heat intolerance or cold intolerance Skin Skin: No rash or changing moles Musc Musculoskeletal: Yes arthritis; No back problems, rheumatoid arthritis, gout or joint pain Cardio Cardiovascular: No murmur, pacemaker, heart disease, atrial fibrillation, high blood pressure, heart attack, heart stent, palpitations, shortness of breat with exertion or chest pain Psych Psychiatric: No depression, anxiety or hearing voices Resp Respiratory: No shortness of breath, No sleep apnea, No cough, No COPD, No asthma, No emphysema and No wheezing Gastro Gastrointestinal: No abdominal pain, No nausea or vomiting, No diarrhea, No constipation, Yes blood in stool, No acid reflux, No hemorrhoids, No ulcers, No gallbladder problem and No black,tarry stools Valente Hematologic: No blood thinners, No blood disorders, No bleeding, No anemia and No blood clots Neuro Neurologic: No system reviewed and no additional complaints, except as documented, No as per HPI, No abnormal gait, No abnormal hearing, No abnormal movements, No abnormal speech, No behavioral changes, No burning sensations, No confusion, No convulsions, No disequilibrium, No dizziness, No localized weakness, No frequent falls, No headache(s), No lack of coordination, No loss of vision, No memory loss, No numbness, No other visual disturbances, No radicular pain, No restless legs, No sensory deficit, No syncope, No tingling, No tremor(s), No weakness and No other Exam Const General: cooperative Orientation: alert and oriented x3 HENMT Head: normal to inspection Neck Neck: normal visual inspection and full ROM Chest Chest palpation & inspection: normal inspection of the chest Resp Effort & Inspection: normal respiratory effort Auscultation: clear to auscultation bilaterally Cardio Rate: regular rate Rhythm: regular rhythm GI Inspection: non-distended Palpation: soft and nontender Skin General: no rashes or lesions noted Neuro General: patient alert and patient oriented x3 Extrem General: full ROM Psych Appearance: grossly normal Mental Status: mental status grossly normal Assessment and Plan Assessment and Plan (1) Rectal polyp: Status: Acute Plan: The patient has a large polyp in the very distal rectum. I would like to remove it surgically and perform an exam under anesthesia. I discussed this with her in detail. I discussed the risks of bleeding and infection. Patient understands the risks and is willing to proceed. Eber Painting MD Pager: [facility] [address] [place] [address], [address] [place] [address] Office: I have examined the patient and the H&P has been reviewed. There are no clinical changes since date of exam.
--- NOTE | 2024-12-28 09:26 | PCM.PRE.AN2 ---
ASA Classification* ASA Classification ASA Classification: 2 Assessment & Plan Anesthesia* Anesthesia Assessment Anesthesia Assessment: Discussed sedation and/or anesthesia options, risks, benefits, and alternatives with patient/parents/legal guardian/POA. Questions invited. The patient/parents/legal guardian/POA seems to understand and agrees to proceed with anesthesia plan. Reviewed the physical assessment, medical history, allergy history and patient home medications list prior to surgery/procedure/anesthetic and documented any changes. Performed airway and anesthesia risk assessments. Anesthesia Type Anesthesia Type: General Anesthesia Focused Assessment* Temperature: 97.1 F Pulse Rate: 82 Blood Pressure: 149/66 Respiratory Rate: 16 Pulse Ox: 99 Airway Assessment Mouth opens: >3 cm Mallampati Score: II Focused Labs Anesthesia Preop lab: CBC WBC 6.6 K/mm3 (4.4-11.0) 05/22/24 11:40 05/22/24 RBC 4.80 M/mm3 (4.2-5.4) 05/22/24 11:40 05/22/24 Hgb 14.7 g/dL (12.0-15.0) 05/22/24 11:40 05/22/24 Hct 44.9 % (37-47) 05/22/24 11:40 05/22/24 Plt Count 263 K/mm3 (150-450) 05/22/24 11:40 05/22/24 CHEMISTRY Potassium 4.3 mmol/L (3.5-5.1) 05/22/24 11:40 05/22/24 Sodium 138 mmol/L (136-145) 05/22/24 11:40 05/22/24 BUN 24 mg/dL (7-18) H 05/22/24 11:40 05/22/24 Creatinine 0.80 mg/dL (0.55-1.02) 05/22/24 11:40 05/22/24 Glucose 98 mg/dL (74-106) 05/22/24 11:40 05/22/24 TSH 2.13 uIU/mL (0.358-3.74) 11/05/19 16:33 11/05/19 COAG Pre-Assessment Diagnosis/Proposed Procedure Planned Operative Procedure(s): EXAM UNDER ANESTHESIA, POLYPECTOMY Rectal Anesthesia History Anesthesia History - panel installer: Anesthesia History - panel installer Hx Hospitalization No 12/14/24 15:30 Any Problems With Anesthesia No 12/14/24 15:30 Cholinesterase deficiency No 12/14/24 15:30 You/Your Family Experience No 12/14/24 15:30 fever (hyperthermia) with Relationship Recent Exposure to Contagious No 12/28/24 09:09 Disease Does patient have nerve No 12/14/24 15:30 stimulator Patient instructed to have device shut off --Does patient have Pacemaker No 12/28/24 09:09 or ICD? When Was Last Pacemaker Check QUESTION #4 FULL TEXT: You/Your Family Experience fever (hyperthermia) with Anesthesia Last Oral Intake Last Oral intake: Last Oral Intake NPO since 00:00 12/28/24 09:09 Meds taken in AM with sips of water? Meds patient instructed to take am of surgery PONV PONV - panel installer: PONV - panel installer Female Yes 12/14/24 15:30 HX of Motion Sickness Yes 12/14/24 15:30 HX of N/V After Surgery No 12/14/24 15:30 Non-Smoker Yes 12/14/24 15:30 Duration of Surgery greater No 12/14/24 15:30 than 60 minutes Number of Risk Factors 3 12/14/24 15:30 PONV Score Moderate Risk 12/14/24 15:30 Height & Weight Height & Weight: Anesthesia: Height & Weight Height 5 ft 3 in 12/28/24 09:09 Weight: 80.286 kg 12/28/24 09:09 Body Mass Index (BMI) 31.3 12/28/24 09:09 Respiratory Assessment Respiratory Assessment - panel installer: Respiratory Tract Infection Hx - panel installer Hx Respiratory Tract Infection No 12/14/24 15:30 STOP Sleep Apnea STOP Sleep Apnea - panel installer: STOP Sleep Apnea - panel installer Hx Hypertension No 12/14/24 15:30 Hx Sleep Apnea No 12/14/24 15:30 CPAP BIPAP Do you snore loudly (louder No 12/14/24 15:30 than talking or can be heard Do you often feel tired/ No 12/14/24 15:30 fatigued/ sleepy during daytime? Has anyone observed you stop No 12/14/24 15:30 breathing during sleep? STOP Results Negative 12/14/24 15:30 QUESTION #5 FULL TEXT : Do you snore loudly (louder than talking or can be heard through closed doors)? Tobacco Use History Tobacco Use History - panel installer: Tobacco Use History - panel installer Tobacco Use Smoking Status Never smoker 12/14/24 15:30 Hx Tobacco Use No 12/14/24 15:30 Years Smoking Packs Smoked per Day Smoking Cessation Date was within the last 15 years Hx Smoking Cessation Date Hx Smoking Cessation Counseling Hematologic Medial History Hematologic Hx - panel installer: Hematologic Medical Hx - experimental display builder Hx of Blood Transfusion No 12/14/24 15:30 Hx of Transfusion in last 3 No 12/14/24 15:30 Months Date of Last Transfusion (if within last 3 months) Ever experience any problems No 12/14/24 15:30 with transfusion(s)? Specify any problems Hx of Preganancy in last 3 No 12/14/24 15:30 Months Nurse Filling Out Transfusion VLEHMAN 12/14/24 15:30 & Questions: Date: 12/14/24 12/14/24 15:30 Time: 15:34 12/14/24 15:30 Patient unable to answer at this time (ie. confused, unrespo /Reproduction History /Reproductive History - panel installer: /Reproductive Hx- panel installer Hx Now No 12/14/24 15:30 Gestational Age (in weeks): EDC: Hx Hx Para Hx Section SAB No 12/14/24 15:30 Active Medications Active Medications: Current Medications Generic Name Dose Route Start Last Admin Trade Name Freq PRN Reason Stop Dose Admin Cefotetan Disodium 2 gm/ 100 mls @ 200 mls/hr 12/28/24 11:30 Sodium Chloride IV 12/28/24 11:59 PREOP ONE Sodium Chloride 1,000 mls @ 15 mls/hr 12/28/24 09:25 IV 01/02/25 22:44 .Q48H [facility] Protocol PFSH Medical History Cancer Post-menopausal Rash History of steroid therapy Arthritis Migraine headache Gastric reflux Asthma History of irregular heartbeat Tendonitis of left knee Glaucoma Home Medications ?Medication ?Instructions ?Recorded ?Last Taken ?Type brimonidine 0.15 % eye drops 1 drp EACH EYE BID 03/21/16 12/28/24 History albuterol sulfate 90 mcg/actuation 2 puff inhalation Q6H PRN Sob &/Or 02/19/21 Unknown History aerosol inhaler (Ventolin HFA) Wheezing fexofenadine 180 mg tablet 180 mg PO DAILY PRN Allergies 02/19/21 Unknown History (Shima Allergy) brinzolamide 1 % eye 1 drp OP BID 02/20/21 12/28/24 History drops,suspension Allergy/AdvReac Type Severity Reaction Status Date / Time bupivacaine (From Allergy Severe Other Verified 12/28/24 09:08 Marcaine-Epinephrine) dorzolamide (From Trusopt) Allergy Severe Other Verified 12/28/24 09:08 epinephrine (From Allergy Severe Other Verified 12/28/24 09:08 Marcaine-Epinephrine) lansoprazole (From Prevacid) Allergy Mild PT UNSURE Verified 12/28/24 09:08 OF REACTION erythromycin base Allergy Unknown Verified 12/28/24 09:08 Family History Grandfather CVA (cerebral vascular accident) Grandmother CVA (cerebral vascular accident) Cancer stomach Mother Heart disease Brother Diabetes Heart disease Surgical History Hx of bilateral cataract extraction History of tooth extraction Hx of tonsillectomy Hx of colonoscopy S/P D&C (status post dilation and curettage) Social History Smoking Status: Never smoker alcohol intake: never Review of Systems (Anesthesia) ROS Narrative System reviewed and no additional complaints, except as documented.
[2024-12-28] MEDS: 0.9% Normal Saline (1000mL) 1,000 ML 15 ML IV (09:28)
[2024-12-28] MEDS: Cefotetan 2 GM in 0.9% Normal Saline (100mL MB+) 100 ML IV (09:58)
[2024-12-28] MEDS: Lubricating Jelly 60 GM Tube 30 GM (10:15)
[2024-12-28] MEDS: Dibucaine 30 GM Tube 1 APPLIC (10:18)
--- NOTE | 2024-12-28 10:21 | OP.PCM_ITS ---
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 The patient was flipped into prone jackknife position. The buttocks were taped open and the perineum was prepped and draped in usual sterile fashion. A well- lubricated speculum was placed into the anus and it was retracted. The polyp was readily identifiable. It was removed from the mucosa using harmonic scalpel. There was good hemostasis. The area was coated with Dibucaine cream and then the speculum was removed. Patient was woken and taken to PACU in stable condition and tolerated the procedure well. Surgical Findings: Rectal polyp Complications Complications: No Admit VTE Documentation VTE Mechan Device Prophylaxis: SCD's
--- NOTE | 2024-12-28 10:23 | EX.PCM.DISCH ---
Discharge Instructions Procedure Rectal Surgery Diet Discharge Diet: Light diet - advance as tolerated (Pain medication may cause nausea. You should typically eat light foods as you take your pain medication.) Activity Discharge Activity: Return to Normal Activity, May Not Drive (Do not drive, work with heavy equipment or sign legal documents for 24 hours after your surgery.) and May Shower May resume sexual activity in: No Restrictions Additional Activity Instructions:: Be aware that pain medications may cause nausea. You should typically eat light foods as you take your pain medications. Pain medications may also cause constipation, if you have difficulty with this please discuss with your doctor. Dressing / Incision Call your doctor if your incision/area has: Continuous Slow Oozing, Sudden Increased Bleeding, Increased Pain/ Swelling and Foul Smelling Discharge Call your doctor if you observe: Fever of 101 or Higher and Uncontrolled pain Cleanse incision/area with: Soap & Water Additional Dressing/Incision Instructions:: Place dibucaine ointment on the perianal area as needed. Sitz baths twice daily and after bowel movements. Follow Up Care Please Follow Up With: Eber Painting MD When: Please call to schedule 2 week follow up appointment. [phone] Test Results: Test results from this visit will be discussed in further detail at your follow-up appointment, if applicable. Discharge Plan Admission Attending Provider: Eber Painting Primary Care Provider: Rhina Castaneda Instructions Print Language: Cook Islander Discharge Orders/Prescriptions Prescriptions: No Action albuterol sulfate [Ventolin HFA] 90 mcg/actuation HFA aerosol inhaler 2 puff INHALATION Q6H PRN (Reason: Sob &/Or Wheezing) fexofenadine [Shima Allergy] 180 mg tablet 180 mg PO DAILY PRN (Reason: Allergies) brimonidine 1 DROP bottle 1 drp EACH EYE BID brinzolamide 15 ML drops,suspension 1 drp OP BID Referrals / Follow Up: Rhian Castaneda MD [Primary Care Provider] - Disposition Disposition (needs filled in before D/C Order can be placed): Home, Self Care
--- NOTE | 2024-12-28 10:36 | PCM.POST.ANE ---
Anesthesia: Postop Eval I Current Vital Signs Temperature: 96.3 F Pulse Rate: 64 Blood Pressure: 139/58 Respiratory Rate: 18 Pulse Ox: 100 Assessment Airway patent: Yes Spontaneous unlabored respirations: Yes nausea: No Vomiting: No Anesthesia Complication: No Fluid Hydration Crystalloid volume administer (ml): 800 Total IV fluid infused: 800 Progress Note Anesthesia document: Postop Eval 1 completed: Yes
--- NOTE | 2024-12-28 11:06 | POSTOPAN2_ITS ---
Anesthesia Postop Eval I Sum Postop Eval Completion status Anesthesia document: Postop Eval 1 completed: Yes Anesthesia Postop Eval I Summary Anesthesia Postop Eval I Summary: Anesthesia Postop Eval I: Assessment Summary Airway patent Yes 12/28/24 10:36 CHIEF CREW [email or web address] Spontaneous unlabored Yes 12/28/24 10:36 CHIEF CREW SCHEDULER.CSIR respirations Mental status nausea No 12/28/24 10:36 CHIEF CREW SCHEDULER.CSIR Vomiting No 12/28/24 10:36 CHIEF CREW SCHEDULER.CSIR Anesthesia Postop Eval I: Fluid Summary Crystalloid volume administer 800 12/28/24 10:36 CHIEF CREW SCHEDULER.CSIR (ml) Colloids volume administered ( ml) Blood Product volume administered (ml) Total IV fluid infused 800 12/28/24 10:36 CHIEF CREW SCHEDULER.CSIR Anesthesia Postop Eval I: Summary Notes Anesthesia Complication No 12/28/24 10:36 CHIEF CREW SCHEDULER.CSIR Anesthesia Complication Comment: Post-operative progress note Anesthesia: Postop Eval II Evaluation Mental status: Awake Pain Level: 0 nausea: No Vomiting: No
--- NOTE | 2024-12-28 11:06 | PCM.POSTANE2 ---
Anesthesia Postop Eval I Sum Postop Eval Completion status Anesthesia document: Postop Eval 1 completed: Yes Anesthesia Postop Eval I Summary Anesthesia Postop Eval I Summary: Anesthesia Postop Eval I: Assessment Summary Airway patent Yes 12/28/24 10:36 ANTENNA [email or web address] Spontaneous unlabored Yes 12/28/24 10:36 ANTENNA [email or web address].CSIR respirations Mental status nausea No 12/28/24 10:36 ANTENNA ENGINEER.CSIR Vomiting No 12/28/24 10:36 ANTENNA ENGINEER.CSIR Anesthesia Postop Eval I: Fluid Summary Crystalloid volume administer 800 12/28/24 10:36 ANTENNA [email or web address].CSIR (ml) Colloids volume administered ( ml) Blood Product volume administered (ml) Total IV fluid infused 800 12/28/24 10:36 ANTENNA ENGINEER.CSIR Anesthesia Postop Eval I: Summary Notes Anesthesia Complication No 12/28/24 10:36 ANTENNA ENGINEER.CSIR Anesthesia Complication Comment: Post-operative progress note Anesthesia: Postop Eval II Evaluation Mental status: Awake Pain Level: 0 nausea: No Vomiting: No
--- NOTE | 2024-12-28 12:49 | CHAPLAIN ---
Type of Pastoral Visit ___ Initial Visit ___ Follow-up Visit ___ On-call Visit _x__ General Patient Visit ___ Spiritual Assessment ___ Family Conference ___ Bereavement ___ Rapid Response ___ Code Blue ___ Other (describe below) Pastoral Care Referral From _x__ Patient ___ Family ___ Nurse ___ Physician ___ Strategic Communications Manager ___ Outreach Professional ___ Other (describe below) Sacrament/Intervention ___ Active listening ___ Anointing ___ Zoroastrian ___ Bereavement ___ Communion ___ Roya exploration ___ ___ Life review _x__ Prayer ___ Reconciliation ___ Sacrament of Sick _x__ Supportive presence ___ Wedding ___ Other (describe below) Pastoral Comments
== END 2024-12-28 11:39 | disposition home or self-care (01) ==
LOC: SDC 08:51 → AC 08:52
PROVIDERS: PCP Family Medicine; Referring Provider Surgery; Visit Provider Surgery
PROC: (CPT 45171; principal; 2024-12-28 11:15)
DX: D12.8 Benign neoplasm of rectum (principal); J45.909 Unspecified asthma, uncomplicated; Z79.51 Long term (current) use of inhaled steroids
CPT/HCPCS: 45171; 00902; 88305; A4216; J2405

== ENCOUNTER 2025-01-15 11:37 | Emergency (ER) | payer BC, SELFPAY ==
[2025-01-15 11:38] VITALS: BP 170/80; PULSE 80; RESP 16; TEMP 36.3; O2SAT 100; BMI 31.6
--- NOTE | 2025-01-15 12:25 | RAD_ITS ---
PROCEDURE: LEFT HAND, THREE VIEWS REASON FOR EXAM: Deformity. Patient had hematoma and cellulitis in left hand. TECHNIQUE: 3 view(s) of the left hand COMPARISON: Left hand, 03/07/2019. FINDINGS: Severe degenerative arthritic changes are noted involving the proximal and distal interphalangeal joints, similar to that seen on the previous study. Severe degenerative osteoarthritis involving the 1st carpometacarpal joint. Degenerative cystic changes are noted involving the carpal bones. Suspicion of mild chondrocalcinosis involving the ulnar carpal joint. Moderate narrowing of the radiocarpal joint. Normal alignment. Soft tissues are unremarkable. 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 [facility]
--- NOTE | 2025-01-15 12:27 | EDS_ITS ---
HPI <BIA Zeng - Last Filed: 01/15/25 14:00> History of Present Illness Chief Complaint: Upper Extremity Injury Narrative Narrative: 85-year-old female states yesterday she noted she could not extend her left pinky finger. In November she had an IV placed in the left dorsal hand and developed a hematoma. Then about a week and a half ago she developed cellulitis and edema of the left hand extending up towards the elbow. She initially started Bactrim but had an allergic reaction so then completed course of doxycycline and the cellulitis has resolved. She followed up today with her primary care doctor and mention she cannot extend her left fifth digit and was sent in for evaluation. She reports pain along the ulnar aspect of the hand since the prior infection. She had no injury. [facility] <BIA Zeng - Last Filed: 01/15/25 14:00> [facility] Medical History (Updated 01/15/25 @ 14:00 by BIA Zeng) Cancer Post-menopausal Rash History of steroid therapy Arthritis Migraine headache Gastric reflux Asthma History of irregular heartbeat Tendonitis of left knee Glaucoma Home Medications ?Medication ?Instructions ?Recorded ?Last Taken ?Type brimonidine 0.15 % eye drops 1 drp EACH EYE BID 12/28/24 History albuterol sulfate 90 mcg/actuation 2 puff inhalation Q 6H PRN Sob &/Or 02/19/21 Unknown History aerosol inhaler (Ventolin HFA) Wheezing fexofenadine 180 mg tablet 180 mg PO DAILY PRN Allergi es 02/19/21 Unknown History (Shima Allergy) brinzolamide 1 % eye 1 drp OP BID 02/20/21 History drops,suspension doxycycline hyclate 100 mg capsule 100 mg PO BID 01/14 Unknown History Allergy/AdvReac Type Severity Reaction Status Date / Time bupivacaine (From Allergy Severe Other Verified 01/15/25 11:41 Marcaine-Epinephrine)
--- NOTE | 2025-01-15 12:27 | EX.ED.UPPERE ---
HPI <BIA Zeng - Last Filed: 01/15/25 14:00> History of Present Illness Chief Complaint: Upper Extremity Injury Narrative Narrative: 85-year-old female states yesterday she noted she could not extend her left pinky finger. In November she had an IV placed in the left dorsal hand and developed a hematoma. Then about a week and a half ago she developed cellulitis and edema of the left hand extending up towards the elbow. She initially started Bactrim but had an allergic reaction so then completed course of doxycycline and the cellulitis has resolved. She followed up today with her primary care doctor and mention she cannot extend her left fifth digit and was sent in for evaluation. She reports pain along the ulnar aspect of the hand since the prior infection. She had no injury. [facility] <BIA Zeng - Last Filed: 01/15/25 14:00> [facility] Medical History (Updated 01/15/25 @ 14:00 by BIA Zeng) Cancer Post-menopausal Rash History of steroid therapy Arthritis Migraine headache Gastric reflux Asthma History of irregular heartbeat Tendonitis of left knee Glaucoma Home Medications ?Medication ?Instructions ?Recorded ?Last Taken ?Type brimonidine 0.15 % eye drops 1 drp EACH EYE BID 03/21/16 12/28/24 History albuterol sulfate 90 mcg/actuation 2 puff inhalation Q6H PRN Sob &/Or 02/19/21 Unknown History aerosol inhaler (Ventolin HFA) Wheezing fexofenadine 180 mg tablet 180 mg PO DAILY PRN Allergies 02/19/21 Unknown History (Shima Allergy) brinzolamide 1 % eye 1 drp OP BID 02/20/21 12/28/24 History drops,suspension doxycycline hyclate 100 mg capsule 100 mg PO BID 01/14/25 Unknown History Allergy/AdvReac Type Severity Reaction Status Date / Time bupivacaine (From Allergy Severe Other Verified 01/15/25 11:41 Marcaine-Epinephrine) dorzolamide (From Trusopt) Allergy Severe Other Verified 01/15/25 11:41 epinephrine (From Allergy Severe Other Verified 01/15/25 11:41 Marcaine-Epinephrine) lansoprazole (From Prevacid) Allergy Mild PT UNSURE Verified 01/15/25 11:41 OF REACTION erythromycin base Allergy Unknown Verified 01/15/25 11:41 sulfamethoxazole (From AdvReac Nausea Verified 01/15/25 11:41 Bactrim) trimethoprim (From Bactrim) AdvReac Nausea Verified 01/15/25 11:41 Family History Grandfather CVA (cerebral vascular accident) Grandmother CVA (cerebral vascular accident) Cancer stomach Mother Heart disease Brother Diabetes Heart disease Surgical History History of rectal polypectomy Hx of bilateral cataract extraction History of tooth extraction Hx of tonsillectomy Hx of colonoscopy S/P D&C (status post dilation and curettage) Social History Smoking Status: Never smoker alcohol intake: never ROS <BIA Zeng - Last Filed: 01/15/25 14:00> ROS ED ROS Narrative Constitutional: Negative for fever, chills, malaise. Neuro: No sensory dysfunction. Skin: Negative for rash, abscess, or wound. Musc: Negative for trauma. EXAM <BIA Zeng - Last Filed: 01/15/25 14:00> Physical Exam Narrative Exam Narrative: CONST: Patient sitting in no acute distress. EYES: Normal inspection. NECK: Normal inspection. RESP: No respiratory distress, CTAB. CVS: Regular rate and rhythm, no murmur, no gallop. SKIN: Color normal, no rash, warm, dry, intact. EXTREMITIES: Left upper extremity appears normal. No bony tenderness of the elbow forearm wrist or hand. She can extend all her digits but does not completely extend the fifth MCP joint. She can make a fist. Normal motor and sensory function in median radial and ulnar distributions. 2+ radial pulse. Brisk cap refill. NEURO: Alert and answering questions appropriately. PSYCH: Normal affect. Const Vital Signs: 01/15/25 11:38 Temperature 97.4 F L Temperature Source Oral Pulse Rate 80 Respiratory Rate 16 Blood Pressure 170/80 H Blood Pressure Mean 110 Pulse Ox 100 Oxygen Delivery Method Room Air MDM <BIA Zeng - Last Filed: 01/15/25 14:00> MDM MDM Narrative Medical decision making narrative: 85-year-old female presents with difficulty extending her left fifth digit since yesterday. She recently had a dorsal hand hematoma from an IV and then developed cellulitis and completed doxycycline. During my exam there are no signs of infection. She can extend her left pinky finger but it is not complete at the MCP joint. There is still movement. She can extend the PIP and DIP joints. Extremity is neurovascularly intact. X-ray shows severe osteoarthritis but no other acute abnormalities. She could have limited range of motion secondary to osteoarthritis or a tendon problem that can be evaluated outpatient by a hand specialist. She was given a splint and discharged in stable condition. <Wolf Owens MD - Last Filed: 01/15/25 14:46> [facility] Treatment and Re-Evaluation Narrative: Dr. Owens: I have personally performed a face to face assessment of the patient and have reviewed the SERA Note. I performed a substantive portion of the visit including all aspects of the following. My browning findings include: History is unable to fully extend left fifth digit/move metacarpal x 1 day. History of hematoma and cellulitis on left hand. Exam is afebrile. Vital signs noted. Nontoxic-appearing. No erythema of hand, no crepitance. Able to flex and extend left fifth digit, but unable to fully extend proximal phalanx/metacarpal. Medical Decision Making: Check x-rays. X-rays interpreted by myself does show no evidence of fracture and severe DJD. Feel the patient probably has more of a neuropraxia injury. Although there is suspicion for tendon rupture, I do not feel she requires emergent MRI. She was placed in a finger splint and referred to hand surgery. Return instructions to the emergency department reviewed. Disposition is discharged home, in stable condition. Other additions or changes: [None] Discharge Plan Triage Chief Complaint: Upper Extremity Injury ED Midlevel Provider: Ju Goss ED Provider: Wolf Owens Dx/Rx/DC Orders Clinical Impression: Deformity of finger of left hand, Osteoarthritis Prescriptions: No Action albuterol sulfate [Ventolin HFA] 90 mcg/actuation HFA aerosol inhaler 2 puff INHALATION Q6H PRN (Reason: Sob &/Or Wheezing) fexofenadine [Shima Allergy] 180 mg tablet 180 mg PO DAILY PRN (Reason: Allergies) doxycycline hyclate 100 mg capsule 100 mg PO BID brimonidine 1 DROP bottle 1 drp EACH EYE BID brinzolamide 15 ML drops,suspension 1 drp OP BID Primary Care Provider: Rhina Castaneda Referrals: Rhina Castaneda MD [Primary Care Provider] - Carl Bolanos MD [Med Staff - Active Staff] - Activity Restrictions/Additional Instructions: Your x-ray shows severe arthritis in your left hand. I recommend you follow-up with Dr. Bolanos who is a plastic surgeon and hand specialist. You could also see an orthopedic doctor. Print Language: Welsh Disposition Disposition: Home, Self Care Discharge Date/Time: 01/15/25 14:04
[2025-01-15 14:03] VITALS: BP 150/78; PULSE 85; RESP 16; TEMP 36.9; O2SAT 96
== END 2025-01-15 14:04 | disposition home or self-care (01) ==
PROVIDERS: Emergency Provider Emergency Medicine; PCP Family Medicine; Visit Provider Emergency Medicine
DX: M19.042 Primary osteoarthritis, left hand (principal)
CPT/HCPCS: 73130; 99283

== ENCOUNTER → 2025-01-30 | Outpatient (CLI) | payer BC, SELFPAY ==
--- NOTE | 2025-01-30 10:12 | MRI_ITS ---
PROCEDURE: UPPER EXT/NO JT/ WO REASON FOR EXAM: POSSIBLE TENDON TEAR TECHNIQUE: MRI of the left hand and wrist without contrast COMPARISON: None. 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 No abnormal osseous signal is seen. No significant joint effusion is evident. At the clinically concerning 5th finger, flexor tendons appear intact, but the extensor tendon appears disrupted at the level of the middle phalanx. Visualized portions of the remaining fingers show intact tendons. Reading Location: [address]
== END | disposition home or self-care (01) ==
PROVIDERS: PCP Family Medicine; Referring Provider Surgery Plastic and Reconstructive Surgery; Visit Provider Surgery Plastic and Reconstructive Surgery
DX: M67.89 Other specified disorders of synovium and tendon, multiple sites (principal)
CPT/HCPCS: 73218

== ENCOUNTER → 2025-03-22 | Outpatient (CLI) | payer BC, SELFPAY ==
--- NOTE | 2025-03-22 15:17 | RAD_ITS ---
PROCEDURE: CHEST PA AND LATERAL none available REASON FOR EXAM: DIZZINESS AND GIDDINESS TECHNIQUE: Frontal and lateral views of the chest. COMPARISON: None available FINDINGS: The lungs appear clear. Pulmonary vascularity appears within limits. No pleural effusion. The cardiac and mediastinal contours appear within limits. Aortic atherosclerotic calcification. Visualized osseous structures appear within limits. RAD/Chest PA and Lateral IMPRESSION: No evidence of acute disease. Reading Location: [id number]
[2025-03-22 17:54] LABS: Absolute Lymphocyte Count 1.26 X10^3/uL (0.83-4.51); Absolute Neutrophil Count 5.3 X10^3/uL (2.0-7.7); Basophil# 0.06 X10^3/uL; Basophil% 0.8 % (0-1); Eosinophil# 0.16 X10^3/uL; Eosinophils% 2.2 % (0-5); Hematocrit 42.8 % (37-47); Hemoglobin 13.8 g/dL (12.0-15.0); Lymphocyte # 1.26 X10^3/ul (0.83-4.51); Lymphocyte % 17.2 % (19-41); Mean Corp Hgb Conc 32.2 g/dL (32-36); Mean Corpuscular Hgb 30.7 pg (27.0-32.0); Mean Corpuscular Volume 95.3 fL (81-99); Mean Platelet Vol. 10.4 fl (6.2-12.0); Monocyte# 0.57 X10^3/uL; Monocyte% 7.8 % (0-10); NRBC Flagged by Analyzer 0 % (0-5); Neutrophil # 5.27 X10^3/uL (2.7-7.7); Neutrophil % 71.9 % (47-70); Platelet Count 277 K/mm3 (150-450); RBC Distribution Width CV 14.4 % (11.6-14.6); RBC Distribution Width SD 50.4 fl (35.1-43.9); Red Blood Count 4.49 M/mm3 (4.2-5.4); White Blood Count 7.3 K/mm3 (4.4-11.0)
[2025-03-22 18:13] LABS: ALB/GLOB Ratio 1.5 RATIO (0.9-2.4); AST(SGOT) 19 U/L (<=31); Alanine Aminotransfer ALT/SGPT 14 U/L (<=34); Albumin, Serum 4.4 g/dL (3.4-4.8); Alkaline Phosphatase 91 U/L (35-104); Anion Gap 11 (5-15); BUN 19 mg/dL (4-19); BUN/Creat Ratio 20.8 RATIO (10-20); Calcium,Total 9.4 mg/dL (7.6-11.0); Carbon Dioxide 24.8 mmol/L (21.0-32.0); Chloride 104 mmol/L (98-108); Creatinine, Serum 0.93 mg/dL (0.70-1.20); EST Glomerular Filtration Rate 61 (>60); Glucose 90 mg/dL (70-99); Potassium 3.7 mmol/L (3.3-5.1); Protein, Total 7.4 g/dL (5.9-8.4); Sodium Level 140 mmol/L (133-145); Total Bilirubin 0.32 mg/dL (0.00-1.30)
[2025-03-22 18:17] LABS: CRP < 3.00 mg/L (0.0-3.0)
== END | disposition home or self-care (01) ==
LOC: MTLAB 15:15
PROVIDERS: PCP Family Medicine; Referring Provider Family Medicine; Visit Provider Family Medicine
DX: R42 Dizziness and giddiness (principal)
CPT/HCPCS: 36415; 71046; 80053; 84443; 85025; 86140

== ENCOUNTER → 2025-05-28 | Outpatient (CLI) | payer BC, SELFPAY ==
[2025-05-28 13:23] LABS: CRP 7.43 mg/L (0.0-3.0)
[2025-05-29 11:09] LABS: ANTINUCLEAR ANTIBODIES DIRECT Negative (Negative)
== END | disposition home or self-care (01) ==
LOC: MTLAB 11:12
PROVIDERS: PCP Family Medicine; Referring Provider Orthopaedic Surgery; Visit Provider Orthopaedic Surgery
DX: S66.819A Strain of other specified muscles, fascia and tendons at wrist and hand level, unspecified hand, initial encounter (principal)
CPT/HCPCS: 36415; 85652; 86038; 86140; 86431

== ENCOUNTER 2025-10-23 14:00 | Outpatient (RCR) | payer BC, SELFPAY ==
--- NOTE | 2025-04-26 07:01 | HP.OTEVAL ---
Patient's Visit Information Visit Information Visit Information: ASHLEY ADAMSON is a 85 year old F, referred to Occupational Therapy by Dr. Marko Willoughby MD, with a diagnosis of extensor tendon repair. Date of Evaluation: 04/23/25 Occupational Therapist: Aletha Diez, OTR/Calli, CHT Subjective Subjective: This 85-year-old female was seen for OT eval with dx of ruptured extensor tendon of left hand /wrist IV &V. pt states she developed a hematoma following coloscopy () this then developed into cellulitis. Shortly after pt noticed she could not lift her LF and RF. Apr 08 2025 pt underwent extensor tendon repair. pt arrives with limited use of left hand for ADls and IADLs. 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 pt will demo understanding of skin care and precautions while using orthosis and notify therapist of irritation to allow therapist to make adj. to orthosis by end of 1st session. Rehabilitation General Assessment: pt arrives 2 weeks and 1 day s.p extensor tendon repair of left hand ( digit IV & V) pt arrives with orthosis on that allows for PIPJ ROM- pt demo with slight swelling of wrist/hand. Pt demo with PIPJ moving well for her OR deformities. pt demo with newly healing structures limiting use of left hand with daily tasks. pt would benefit from skilled OT services 1-2 x week for 8 weeks to return pt to a functional use of left hand with daily tasks. Today therapist ed. pt on scar mtg, damaris control and reviewed with pt Hook fist ROM, orthosis use. pt demo understanding and agree to POC. Rehabilitation Potential: Good Anticipated Interventions Anticipated Interventions: A/AAROM/PROM, Strengthening, Edema Control, Scar Care, Triggerpoint Release, Modalities, Orthoses, Joint Protection/Energy Conservation, Ergonomic Education, Fine Motor Coord/Geraldo, Education re assistive Equipment, Education re Diagnosis and Home Program Visit Plan Frequency: 1-2x /Week Duration: 2 Months General Plan: PROM digits- edema control 2 splint (one night splint resting hand with digits in full ext one day splint to allow for PIPJ free for ROM Advanced as tolerated TEXT: Thank you for the opportunity to evaluate your patient. For Medicare and Medicare HMO plans, please review the plan of care and approve it. It will need to be FAXED BACK to us at [phone] for Medicare purposes. Please let me know if there are questions or concerns regarding this plan of care. Physician Signature: Date:
--- NOTE | 2025-05-20 10:00 | OTREVAL_ITS ---
Re-Evaluation Intro: Dr. Marko Willoughby MD, It has been my pleasure to treat ASHLEY ADAMSON over the last 3 visits for extensor tendon repair. Please see the progress note below for an update on the occupational therapy plan of care! Subjective Subjective: pt arrives 6 weeks s/p from extensor tendon repair- DOS 04/08/25. pt continues to struggle with swelling Objective Objective/Function: left wrist ROM 30/15 left MCP IF -15/20 left MCP MF -20/50 left MCP RF -10 left MCP LF - pt continues demo swelling of digits- she is using ice and contrast bath- Pt OA deformities are limiting gains at her PIP- pt is unsure if she had a full fist prior to her extensor tendon rupture- pt working with edema- active ROM of HOOk and now initiated full fist- initiated wrist short arch wrist ROM- therapist has ed. pt on light pull or stretch nothing aggressive or painful. Plan Plan Frequency: 1-2x /Week Duration: 2 Months Visits in this POC: 2 months (1-2x week) Plan: continue per POC for early mobility within confines of splint allowing for splint off for MP flexion and PIP flexion isolation then slight motion with WF/WE Goals Goals Patient Goals: Regain Mobility, Improve Fine Motor Skills, Use Hand/Wrist/Arm Normally Again and Be More Independent in ADLS Goal:Daily scar massage when approriate: Yes Goal:ROM equal to unaffected hand: Yes Goal:Electrician Ship/Pinch strength at least 75% of unaffected hand: Yes Goal:No pain with affected hand use: Yes Goal:Full use of affected hand in daily activities including work: Yes Goal:Decrease scar hypersensitivity: Yes Other Goal: orthosis use: pt will demo understanding of orthosis use by end of 1st session. pt will demo understanding of skin care and precautions while using orthosis and notify therapist of irritation to allow therapist to make adj. to orthosis by end of 1st session. Anticipated Interventions Anticipated Interventions Anticipated Interventions: A/AAROM/PROM, Strengthening, Edema Control, Scar Care, Triggerpoint Release, Modalities, Orthoses, Joint Protection/Energy Conservation, Ergonomic Education, Fine Motor Coord/Geraldo, Education re assistive Equipment, Education re Diagnosis and Home Program Re-Evaluation Ending Re-evaluation ending: Please do not hesitate to contact me at [phone] by phone or if you have questions or concerns regarding this new plan of care! Sincerely, Aletha Diez, OTR/L, CHT
--- NOTE | 2025-10-23 14:24 | HP.OTREVAL ---
Re-Evaluation Intro: Dr. Marko Willoughby MD, It has been my pleasure to treat ASHLEY ADAMSON over the last 18 visits for extensor tendon repair. Please see the progress note below for an update on the occupational therapy plan of care! Subjective Subjective: pt arrives for her last approved session . pt states she did do some snow pushing/scrapping and it went ok. pt states she was able to carry her [place] tree out of storage- pt states she has adj. her abilities due to her hand stiffness and limited motion. pt states she cooked all of TG dinner. Objective Objective/Function: pt states she can do heavy things ie move the couch out and chair, able to make her bed and fold her sheets. 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 pt has maxed her OT sessions out and now will be d/c with HEP. Plan Plan Visits in this POC: 18 Plan: d/c due to max OT visits reached Goals Goals Patient Goals: Regain Mobility, Improve Fine Motor Skills, Use Hand/Wrist/Arm Normally Again and Be More Independent in ADLS Goal:Daily scar massage when approriate: Yes Goal:ROM equal to unaffected hand: Yes Goal:Election Assistant/Pinch strength at least 75% of unaffected hand: Yes Goal:No pain with affected hand use: Yes Goal:Full use of affected hand in daily activities including work: Yes Goal:Decrease scar hypersensitivity: Yes Other Goal: orthosis use: pt will demo understanding of orthosis use by end of 1st session. pt will demo understanding of skin care and precautions while using orthosis and notify therapist of irritation to allow therapist to make adj. to orthosis by end of 1st session. Anticipated Interventions Anticipated Interventions Anticipated Interventions: A/AAROM/PROM, Strengthening, Edema Control, Scar Care, Triggerpoint Release, Modalities, Orthoses, Joint Protection/Energy Conservation, Ergonomic Education, Fine Motor Coord/Geraldo, Education re assistive Equipment, Education re Diagnosis and Home Program Re-Evaluation Ending Re-evaluation ending: Please do not hesitate to contact me at [phone] by phone or if you have questions or concerns regarding this new plan of care! Sincerely, Aletha Diez, OTR/L, CHT
== END 2025-10-23 19:00 | disposition home or self-care (01) ==
LOC: OT 14:00
PROVIDERS: PCP Family Medicine; Referring Provider Orthopaedic Surgery; Visit Provider Orthopaedic Surgery
DX: M67.89 Other specified disorders of synovium and tendon, multiple sites (principal)
CPT/HCPCS: 97110; 97140; 97166; 97530